=== PATIENT | male | born 1970 | race Caucasian/White ===

== ENCOUNTER 2018-06-29 14:04 | Inpatient (IN) | payer OTHER ==
[2018-06-29] MEDS ORDERED: KETOROLAC 30 MG/ML 1 ML VIAL IVP STA (15:10)
[2018-06-29 15:28] LABS: Basophils # (A) 0.1 k/uL (0-0.2); Basophils % (A) 0 %; Eosinophils # (A) 0.1 k/uL (0-0.7); Eosinophils % (A) 1 %; HCT 48.4 % (39.0-53.0); HGB 16.5 gm/dL (13.0-17.5); Lymphocytes # (A) 2.1 k/uL (1.0-4.8); Lymphocytes % (A) 10 %; MCH 30.1 pg (25.0-35.0); MCHC 34.1 g/dL (31.0-37.0); MCV 88.3 fL (80.0-100.0); Mean Platelet Volume 6.4; Monocytes # (A) 0.9 k/uL (0-1.0); Monocytes % (A) 5 %; Neutrophils # (A) 16.8 k/uL (1.3-7.7); Neutrophils % (A) 83 %; Platelet Count 298 k/uL (150-450); RBC 5.47 m/uL (4.30-5.90); WBC 20.2 k/uL (3.8-10.6)
--- NOTE | 2018-06-29 15:29 | ED ---
Skin/Abscess/FB HPI <Antoine Bolden - Last Filed: 06/29/18 16:06> - General Source: patient, RN notes reviewed, old records reviewed Mode of arrival: ambulatory Limitations: no limitations <Irais Marin - Last Filed: 06/29/18 17:00> - General Chief complaint: Skin/Abscess/Foreign Body Stated complaint: Right Arm Abscess Time Seen by Provider: 06/29/18 14:30 - History of Present Illness Initial comments: This Patient is a pleasant 47-year-old male who presents emergency Department chief complaint of right wrist abscess. Patient reports that on he believes he got bit by something while he was up [place]. Patient states that he returned home and over the past 2 days has noticed increased redness pain and swelling to the forearm. He states that he has a central area with purulent and clear drainage coming from the wrist. He denies any history of MRSA. Denies any history of IV drug use. (Irais Marin) - Related Data Home Medications Medication Instructions Recorded Confirmed No Known Home Medications 06/29/18 06/29/18 Allergies Allergy/AdvReac Type Severity Reaction Status Date / Time No Known Allergies Allergy Verified 06/29/18 14:36 Review of Systems ROS Other: All systems not noted in ROS Statement are negative. <Antoine Bolden - Last Filed: 06/29/18 16:06> ROS Other: All systems not noted in ROS Statement are negative. <Irais Marin - Last Filed: 06/29/18 17:00> ROS Statement: Those systems with pertinent positive or pertinent negative responses have been documented in the HPI. Past Medical History Past Medical History: No Reported History History of Any Multi-Drug Resistant Organisms: None Reported Past Surgical History: No Surgical Hx Reported Past Psychological History: No Psychological Hx Reported Smoking Status: Current every day smoker Past Alcohol Use History: None Reported Past Drug Use History: None Reported <Irais Marin - Last Filed: 06/29/18 17:00> General Exam <Antoine Bolden - Last Filed: 06/29/18 16:06> Limitations: no limitations General appearance: alert, in no apparent distress Head exam: Present: atraumatic, normocephalic, normal inspection Eye exam: Present: normal appearance, PERRL, EOMI. Absent: scleral icterus, conjunctival injection, periorbital swelling ENT exam: Present: normal exam, mucous membranes moist Neck exam: Present: normal inspection. Absent: tenderness, meningismus, lymphadenopathy Respiratory exam: Present: normal lung sounds bilaterally. Absent: respiratory distress, wheezes, rales, rhonchi, stridor Cardiovascular Exam: Present: regular rate, normal rhythm, normal heart sounds. Absent: systolic murmur, diastolic murmur, rubs, gallop, clicks GI/Abdominal exam: Present: soft, normal bowel sounds. Absent: distended, tenderness, guarding, rebound, rigid Extremities exam: Present: normal inspection, full ROM, normal capillary refill. Absent: tenderness, pedal edema, joint swelling, calf tenderness Right Upper Arm exam: Present: normal inspection, full ROM Elbow exam: Present: normal inspection, full ROM Forearm Wrist exam: Present: full ROM, tenderness, swelling, erythema (5cm abscess over distal ulna with surrounding cellulitis. 2 small puncture wounds over area of abscess, concern for animal/insect bite. ). Absent: normal inspection Hand Wrist exam: Present: normal inspection Back exam: Present: normal inspection Neurological exam: Present: alert, oriented X3, CN II-XII intact Psychiatric exam: Present: normal affect, normal mood Skin exam: Present: warm, dry, intact, normal color. Absent: rash <Irais Marin - Last Filed: 06/29/18 17:00> - General Exam Comments Initial Comments: Is a 47-year-old male. Alert and oriented. Patient appears in no significant distress. (Irais Marin) Vital Signs 06/29/18 06/29/18 14:15 16:47 Temperature 97.6 F 97.9 F Pulse Rate 84 91 Respiratory 20 17 Rate Blood Pressure 147/91 153/99 O2 Sat by Pulse 98 93 L Oximetry Medical Decision Making - Lab Data Result diagrams: 06/29/18 15:15 06/29/18 15:15 <Antoine Bolden - Last Filed: 06/29/18 16:06> - Lab Data Result diagrams: 06/29/18 15:15 06/29/18 15:15 - Radiology Data Radiology results: report reviewed <Irais Marin - Last Filed: 06/29/18 17:00> - Medical Decision Making Patient reexamined and reevaluated by myself, Dr. Bolden. Patient resting comfortably in bed. Patient has had fevers at home. Patient does have an area of inflammation right ulnar side of the wrist proximally 3 x 3 cm that could be early abscess. PA we'll attempt to drain this with needle. There is cellulitis extending towards the elbow. Patient has elevated white blood cell count. Patient updated on results and plan. Case discussed in detail with Dr. Ceballos, who will admit covering for hospital call. I did review and agree with the findings. This includes all diagnostic interpretations and treatment plan. Patient does not meet sepsis criteria at this time. (Antoine Bolden) Patient is a 47-year-old male presents to return today with right wrist inflammation. Patient has been early abscess. Patient was started on Zosyn and vancomycin. X-ray of the forearm was reviewed and shows no evidence of osteomyelitis. White blood cell count is elevated 20,000. Blood cultures were obtained. I was able to use a in 18-gauge needle to open the area of fluctuance. Approximately 2 mL of purulent fluid was removed. Culture was completed. Patient will be started on the antibiotics and admitted. Dr. Bolden discussed the case with Dr. Ceballos. (Irais Marin) - Lab Data Lab Results 06/29/18 06/29/18 Range/Units 15:15 15:15 WBC 20.2 H (3.8-10.6) k/uL RBC 5.47 (4.30-5.90) m/uL Hgb 16.5 (13.0-17.5) gm/dL Hct 48.4 (39.0-53.0) % MCV 88.3 (80.0-100.0) fL MCH 30.1 (25.0-35.0) pg MCHC 34.1 (31.0-37.0) g/dL RDW 13.0 (11.5-15.5) % Plt Count 298 (150-450) k/uL Neutrophils % 83 % Lymphocytes % 10 % Monocytes % 5 % Eosinophils % 1 % Basophils % 0 % Neutrophils # 16.8 H (1.3-7.7) k/uL Lymphocytes # 2.1 (1.0-4.8) k/uL Monocytes # 0.9 (0-1.0) k/uL Eosinophils # 0.1 (0-0.7) k/uL Basophils # 0.1 (0-0.2) k/uL Sodium 139 (137-145) mmol/L Potassium 4.6 (3.5-5.1) mmol/L Chloride 101 (98-107) mmol/L Carbon Dioxide 28 (22-30) mmol/L Anion Gap 10 mmol/L BUN 13 (9-20) mg/dL Creatinine 0.66 (0.66-1.25) mg/dL Est GFR (CKD-EPI)AfAm >90 (>60 ml/min/1.73 sqM) Est GFR (CKD-EPI)NonAf >90 (>60 ml/min/1.73 sqM) Glucose 104 H (74-99) mg/dL Calcium 9.8 (8.4-10.2) mg/dL Total Bilirubin 0.6 (0.2-1.3) mg/dL AST 16 L (17-59) U/L ALT 26 (21-72) U/L Alkaline Phosphatase 78 (38-126) U/L Total Protein 7.8 (6.3-8.2) g/dL Albumin 4.3 (3.5-5.0) g/dL - Radiology Data Normal right forearm x-ray. (Irais Marin) Disposition <Antoine Bolden - Last Filed: 06/29/18 16:06> Is patient prescribed a controlled substance at d/c from ED?: No Time of Disposition: 16:59 <Irais Marin - Last Filed: 06/29/18 17:00> Clinical Impression: Abscess of right forearm Disposition: HOME SELF-CARE Condition: Good Additional Instructions: \ Referrals: Elvis Bradford DO [Primary Care Provider] - 1-2 days
--- NOTE | 2018-06-29 15:29 | XR ---
EXAMINATION TYPE: XR forearm RT DATE OF EXAM: 06/29/2018 COMPARISON: NONE HISTORY: Pain and redness TECHNIQUE: 2 views FINDINGS: Radius and ulna appear intact. I see no fracture nor dislocation. Joint spaces are fairly n ormal. IMPRESSION: Negative right forearm exam.
[2018-06-29] MEDS ORDERED: TETANUS-DIPHTHERIA TOX (PF) 0.5 ML VIAL IM ONE (15:30)
[2018-06-29 15:38] LABS: ALT 26 U/L (21-72); AST 16 U/L (17-59); Albumin 4.3 g/dL (3.5-5.0); Alkaline Phosphatase 78 U/L (38-126); Anion Gap 10 mmol/L; Blood Urea Nitrogen 13 mg/dL (9-20); Calcium 9.8 mg/dL (8.4-10.2); Carbon Dioxide 28 mmol/L (22-30); Chloride 101 mmol/L (98-107); Glucose 104 mg/dL (74-99); Potassium 4.6 mmol/L (3.5-5.1); Sodium 139 mmol/L (137-145); Total Bilirubin 0.6 mg/dL (0.2-1.3); Total Protein 7.8 g/dL (6.3-8.2)
[2018-06-29] MEDS ORDERED: PIPERACILLIN-TAZOBACTAM 3.375 GM in SODIUM CHLORIDE 0.9% 100 ML IVPB STA (16:21)
[2018-06-29] MEDS ORDERED: VANCOMYCIN IV PER PHARMACY 1 EACH MISC MISCELLANE PRN (16:21)
[2018-06-29] MEDS ORDERED: SODIUM CHLORIDE 0.9% 1,000 ML IV ONE (16:23)
[2018-06-29] MEDS ORDERED: ONDANSETRON 4 MG/2 ML VIAL IVP PRN (17:00)
[2018-06-29] MEDS ORDERED: IBUPROFEN 400 MG TAB PO PRN (17:00)
[2018-06-29] MEDS ORDERED: VANCOMYCIN 1,500 MG in SODIUM CHLORIDE 0.9% 250 ML IVPB ONE (17:00)
[2018-06-29] MEDS ORDERED: ACETAMINOPHEN TAB 325 MG TAB PO PRN (17:00)
[2018-06-29] MEDS ORDERED: HYDROcodone/APAP 5-325MG 1 EACH TAB PO PRN (17:00)
[2018-06-29] MEDS ORDERED: oxyCODONE-APAP 5-325MG 1 EACH TAB PO PRN (17:00)
[2018-06-29] MEDS ORDERED: NALOXONE 0.4 MG/ML 1 ML VIAL IV PRN (17:00)
--- NOTE | 2018-06-29 17:03 | ED ---
Medical Decision Making - Lab Data Result diagrams: 06/29/18 15:15 06/29/18 15:15 Lab Results 06/29/18 06/29/18 Range/Units 15:15 15:15 WBC 20.2 H (3.8-10.6) k/uL RBC 5.47 (4.30-5.90) m/uL Hgb 16.5 (13.0-17.5) gm/dL Hct 48.4 (39.0-53.0) % MCV 88.3 (80.0-100.0) fL MCH 30.1 (25.0-35.0) pg MCHC 34.1 (31.0-37.0) g/dL RDW 13.0 (11.5-15.5) % Plt Count 298 (150-450) k/uL Neutrophils % 83 % Lymphocytes % 10 % Monocytes % 5 % Eosinophils % 1 % Basophils % 0 % Neutrophils # 16.8 H (1.3-7.7) k/uL Lymphocytes # 2.1 (1.0-4.8) k/uL Monocytes # 0.9 (0-1.0) k/uL Eosinophils # 0.1 (0-0.7) k/uL Basophils # 0.1 (0-0.2) k/uL Sodium 139 (137-145) mmol/L Potassium 4.6 (3.5-5.1) mmol/L Chloride 101 (98-107) mmol/L Carbon Dioxide 28 (22-30) mmol/L Anion Gap 10 mmol/L BUN 13 (9-20) mg/dL Creatinine 0.66 (0.66-1.25) mg/dL Est GFR (CKD-EPI)AfAm >90 (>60 ml/min/1.73 sqM) Est GFR (CKD-EPI)NonAf >90 (>60 ml/min/1.73 sqM) Glucose 104 H (74-99) mg/dL Calcium 9.8 (8.4-10.2) mg/dL Total Bilirubin 0.6 (0.2-1.3) mg/dL AST 16 L (17-59) U/L ALT 26 (21-72) U/L Alkaline Phosphatase 78 (38-126) U/L Total Protein 7.8 (6.3-8.2) g/dL Albumin 4.3 (3.5-5.0) g/dL Disposition Clinical Impression: Abscess of right forearm Disposition: ADMITTED IP TO THIS HOSP Condition: Good Additional Instructions: \ Referrals: Elvis Bradford DO [Primary Care Provider] - 1-2 days
[2018-06-29 18:33] VITALS: BMI 22.7
[2018-06-29] MEDS: SODIUM CHLORIDE 0.9% 1,000 ML IV SCH (18:42)
[2018-06-29] MEDS: VANCOMYCIN 1,500 MG in SODIUM CHLORIDE 0.9% 250 ML IVPB SCH (23:39)
[2018-06-29] MEDS: TEMAZEPAM 15 MG CAP PO PRN (23:39)
[2018-06-30] MEDS: HYDROmorphone 0.5 MG/0.5 ML SYRINGE IVP PRN ×6 (02:35→21:12)
[2018-06-30] MEDS: SODIUM CHLORIDE 0.9% 1,000 ML IV SCH ×2 (02:47→11:34)
[2018-06-30] MEDS: VANCOMYCIN 1,500 MG in SODIUM CHLORIDE 0.9% 250 ML IVPB SCH ×2 (07:39→16:59)
[2018-06-30] MEDS: HEPARIN SODIUM,PORCINE 5,000 UNIT/ML 1 ML VIAL SQ SCH ×2 (07:49→21:11)
[2018-06-30] MEDS: PANTOPRAZOLE 40 MG/10 ML VIAL IV SCH (07:49)
--- NOTE | 2018-06-30 09:15 | HP ---
HISTORY AND PHYSICAL DATE OF SERVICE: 06/29/2018 CHIEF COMPLAINT: Pain and swelling of the right arm. HISTORY OF PRESENT ILLNESS: This 47-year-old gentleman with a past medical history of no significant medical illness being followed by Dr. Elvis Bradford in the outpatient setting, is a lunch truck operator. Patient [place] and patient was in the house and patient noted some white spots in the right wrist and patient apparently did not do anything about it and went about this way, but subsequently patient had increased swelling and pain. Patient had features of fever, weakness, night sweats and multiple symptomatology. Patient came to [facility] and admitted for further evaluation. By this time the swelling has improved significantly about 4-5 cm, tender and also purulent pus could be expressed also by the ER physician. The insect bite is suspected by the patient but without any evidence. There is no history of fever, rigors. No headache, loss of consciousness. No history of previous MRSA. PAST MEDICAL: No history of medical illness. MEDICATIONS: Home medications are none. ALLERGIES: None. FAMILY HISTORY: No history of heart disease or history of hypertension in the family. SOCIAL HISTORY: History of smoking on a daily basis. REVIEW OF SYSTEMS: ENT: No diminished hearing or vision. CARDIOVASCULAR: No angina. RESPIRATORY: No cough or hemoptysis. GI: No nausea. : No dysuria. NERVOUS SYSTEM: No numbness or weakness. ALLERGY/IMMUNOLOGY: No asthma. MUSCULOSKELETAL: As mentioned earlier. HEMATOLOGY: No history of anemia. ENDOCRINE: No history of diabetes or hypothyroid. CONSTITUTIONAL: As mentioned earlier. DERMATOLOGY: As mentioned earlier. RHEUMATOLOGY: Negative. PSYCHIATRY: As mentioned earlier. PHYSICAL EXAM: Patient is alert, oriented x3. Pulse is 87, blood pressure 143/84, respiration 18, temperature 100.6, pulse ox 97% on room air. HEENT: Conjunctivae normal. Oral mucosa moist. Neck is no jugular venous distention. No carotid bruit. No lymph node enlargement. CARDIOVASCULAR: S1, S2. RESPIRATORY: Breath sounds diminished in the bases. No rhonchi, no crackles. ABDOMEN: Soft, nontender. No mass palpable. LEGS: No edema, no swelling. NERVOUS SYSTEM: Higher functions as mentioned. Moves all 4 limbs. No focal motor or sensory deficits. LYMPHATIC: No lymphadenopathy in the neck, axillae, groin. SKIN: No ulcer except the right arm. EXAMINATION OF THE RIGHT FOREARM: Significant swelling with minimal fluctuation, severe tender, erythema with ascending lymphangitis present on the volar aspect. LAB: WBC 20.2, hemoglobin 16.4. ASSESSMENT: 1. Acute left wrist abscess with possible early sepsis. 2. Increased WBC. 3. History of nicotine dependence. RECOMMENDATIONS AND DISCUSSION: This 47-year-old gentleman who presented with multiple complex medical issues, we will monitor the patient closely. Continue the current management. Will obtain Infectious Disease and Orthopedic evaluations. The patient could definitely need incision and drainage. We will follow the cultures. Empiric antibiotics with vancomycin and Zosyn has been initiated. Prognosis extremely guarded because of multiple complex medical issues. Further recommendations to follow. Copy of dictation forwarded to Dr. Elvis Bradford, who is the primary physician. MMSTEPHIEL / TIMURN: [id number] /
[2018-06-30] MEDS: ALPRAZolam 0.25 MG TAB PO PRN ×2 (09:38→19:52)
[2018-06-30] MEDS ORDERED: HYDROcodone/APAP 7.5-325MG 1 EACH TAB PO PRN (11:21)
[2018-06-30] MEDS ORDERED: SODIUM CHLORIDE 0.9% 1,000 ML IV ONE (14:05)
[2018-06-30] MEDS ORDERED: LACTATED RINGERS 1,000 ML IV ONE (14:06)
--- NOTE | 2018-06-30 14:42 | CONS ---
CONSULTATION CHIEF COMPLAINT: Right volar forearm swelling/drainage. HISTORY OF PRESENT ILLNESS: The patient is a 47-year-old, right-hand dominant regional flatbed truck driver who presents with right forearm/wrist pain and erythema along with recent fevers and chills for the past 3 days. Started the day after Rajendra. He thinks he may of sustained an insect bite. He has had progressive redness, warmth, and eventual drainage from this site. He notes fevers and chills in addition to feeling on well. He presented the emergency room yesterday. PAST MEDICAL HISTORY: Negative. PAST SURGICAL HISTORY: Negative. CURRENT MEDICATIONS: None. ALLERGIES: He denies drug allergies. FAMILY HISTORY: Noncontributory. SOCIAL HISTORY: Significant for 1 pack per day tobacco use. He denies any type of IV drug use. REVIEW OF SYSTEMS: Sixteen point review of systems is reviewed and is positive for recent fevers/chills. PHYSICAL EXAMINATION: On examination, the patient currently is afebrile with stable vital signs. He is alert, oriented x4. HEENT exam is nonfocal. Neck is supple. He is nontender about the right shoulder. No palpable lymphadenopathy is noted in the axilla. He is nontender about the right elbow. On examination of his right forearm, he does have a volar distal ulnar wound with some purulence. There is significant induration and swelling along with surrounding erythema. Light touch is distally intact. Capillary refill is less than 2 seconds throughout the digits. He has full digital range of motion. He has full pronation and supination of the right forearm. He does have some pain with flexion and ulnar deviation of the right wrist. He is nontender about the dorsal radiocarpal and dorsal ulnocarpal articulation. Previous x-rays of the right forearm showed no definite osseous abnormality or radiopaque foreign body. Laboratory studies show white blood cell count peripherally 20.2 with a significant left shift. IMPRESSION: Right volar distal ulnar forearm abscess. RECOMMENDATIONS: I talked to the patient about his options. At this point, recommend proceeding with incision and drainage with irrigation and debridement of this abscess. We will obtain deep cultures. We will follow with Infectious Disease and ask for their assistance in antibiotic treatment. Thank you for this consultation. MMODL / IJN: [id number] /
[2018-06-30] MEDS ORDERED: KETOROLAC 30 MG/ML 1 ML VIAL ONE (14:53)
[2018-06-30] MEDS ORDERED: MIDAZOLAM 2 MG/2 ML VIAL ONE (14:53)
[2018-06-30] MEDS ORDERED: LIDOCAINE 1% INJ 10MG/ML (20 ML MDV) ONE (14:53)
[2018-06-30] MEDS ORDERED: KETAMINE 10 MG/ML 20 ML VIAL ONE (14:53)
[2018-06-30] MEDS ORDERED: fentaNYL (PF) 50 MCG/ML 2 ML AMP ONE (14:53)
[2018-06-30] MEDS ORDERED: DEXAMETHASONE SOD PHOS (MDV) 100 MG/10 ML VIAL ONE (14:53)
[2018-06-30] MEDS ORDERED: PROPOFOL 10 MG/ML 20 ML VIAL IV ONE (14:53)
--- NOTE | 2018-06-30 15:30 | P.OP ---
Date of Procedure: 06/30/18 Preoperative Diagnosis: Right volar distal ulnar forearm abscess Postoperative Diagnosis: Same Procedure(s) Performed: Incision and drainage with irrigation and debridement right volar distal ulnar forearm abscess Anesthesia: BRIDGETA Surgeon: Tomi Bee Estimated Blood Loss (ml): 10 Pathology: other (Deep cultures) Condition: stable Disposition: PACU Indications for Procedure: The patient's a 47-year-old male who presents with a several day history of increasing swelling, warmth, and erythema along with drainage about a right distal forearm infection. Clinically he was noted of evidence of a significant abscess. A discussion of the risks and benefits of operative intervention was made with patient. He opted to proceed. Specific risks of the procedure to include persistence of infection, neurovascular injury, and possible need for subsequent procedures was discussed. Informed consent was obtained. Operative Findings: As below Description of Procedure: The patient was brought to the operating room, and after induction of general anesthesia the right upper extremity was prepped and draped in a normal fashion. The tourniquet was inflated to 250 mmHg. A 3-1/2 cm incision was then made along the distal ulnar aspect of the right forearm over the palpable abscess and site of drainage. The skin was incised sharply. Subcutaneous tissues were divided bluntly. Significant purulence was encountered. Deep cultures were obtained. All the purulence was expressed. This extended down to level the muscle fascia. This was copiously irrigated with normal saline. 2 L was utilized. The wound edges and necrotic tissue was debrided sharply with a scalpel. The skin was then loosely reapproximated with simple 3-0 nylon sutures. A sterile dressing was applied. The tourniquet was deflated less than 30 minutes total tourniquet time. He was then awoken from general anesthesia and transferred to recovery room in good condition. Blood loss was estimated at 10 mL. No complications were incurred. Sponge and needle counts were correct at the end of the case.
[2018-06-30] MEDS ORDERED: HYDROmorphone 1 MG/ML 1 ML SYRINGE IVP ONE ×4 (15:40→16:15)
[2018-06-30] MEDS: HYDROcodone/APAP 7.5-325MG 1 EACH TAB PO PRN ×2 (17:11→22:41)
[2018-06-30] MEDS ORDERED: ceFAZolin IN SWFI 2 GM/20 ML SYRINGE IVP SCH (17:15)
[2018-06-30] MEDS ORDERED: diphenhydrAMINE 50 MG/ML 1 ML VIAL IVP PRN (18:12)
[2018-06-30] MEDS: KETOROLAC 30 MG/ML 1 ML VIAL IVP PRN (19:52)
--- NOTE | 2018-06-30 21:15 | PN ---
PROGRESS NOTE DATE OF SERVICE: 06/30/2018 This 47-year-old gentleman admitted with significant abscess on the left wrist, also had possibly early sepsis present on admission. The patient underwent incision and drainage by Dr. Bee and debridement of the right distal ulna forearm abscess was done. Significant fullness is noted. Deep cultures were obtained. The patient also had skin lesions on the right lower chest area with some extension also. Patient being closely monitored. The patient on broad-spectrum IV antibiotics. The cultures are negative so far. PAST MEDICAL HISTORY: Reviewed. REVIEW OF SYSTEM: Cardio system: No angina or palpitations. RESPIRATORY: As mentioned earlier. GASTROINTESTINAL: As mentioned earlier. : No dysuria, retention. CURRENT MEDICATIONS ARE: Current medications are reviewed and include: 1. Tylenol p.r.n. 2. [place] 7.5 q.4h p.r.n. 3. Xanax. 4. Kefzol. 5. Heparin. 6. Dilaudid 0.5 q.4h p.r.n. 7. Motrin. 8. Narcan. 9. Zofran. 10.Protonix. 11.Restoril. 12.Vancomycin IV. PHYSICAL EXAMINATION: GENERAL: Alert and oriented times three. VITAL SIGNS: Pulse 70. Blood pressure 150/90, respiration 16, temperature 98.2, pulse ox 98% on 10 L. HEENT is conjunctivae normal. NECK: No jugular venous distention. CARDIOVASCULAR: S1, S2. RESPIRATORY: Breath sounds diminished in the bases. No rhonchi. No crackles. ABDOMEN: Soft, nontender. Legs: No edema. CENTRAL NERVOUS SYSTEM: No focal deficits. Examination of the right forearm, status post surgery. LABS: WBC 20.8. ASSESSMENT: 1. Acute left wrist abscess with possible early sepsis status post incision and drainage. 2. Possible cutaneous abscess in the right lower chest posteriorly. 3. Increased WBC. 4. History of nicotine dependence. 5. Severe pain. RECOMMENDATIONS AND DISCUSSION: Recommend to continue current medications, management and symptomatic treatment. Adjust pain medications. I would also recommend continue with the antibiotics. Follow the cultures. I would also recommend Toradol to the current regimen also. The prognosis guarded because of the because of multiple complex medical issues and further recommendations to follow. We will closely follow with Orthopedic surgery, Dr. Bee and cultures. Also discussed with the patient, understands and agrees. MMODL / IJN: [id number] /
[2018-06-30] MEDS: TEMAZEPAM 15 MG CAP PO PRN (21:20)
[2018-06-30] MEDS ORDERED: HYDROmorphone 1 MG/ML 1 ML SYRINGE IVP PRN (22:07)
[2018-06-30] MEDS ORDERED: VANCOMYCIN TROUGH DUE 1 EACH MISC MISCELLANE ONE (23:00)
[2018-07-01] MEDS: SODIUM CHLORIDE 0.9% 1,000 ML IV SCH ×3 (00:19→17:05)
[2018-07-01] MEDS: VANCOMYCIN 1,500 MG in SODIUM CHLORIDE 0.9% 250 ML IVPB SCH ×4 (00:19→23:31)
[2018-07-01] MEDS ORDERED: HYDROmorphone 1 MG/ML 1 ML SYRINGE IVP STA (04:28)
[2018-07-01] MEDS: HYDROcodone/APAP 7.5-325MG 1 EACH TAB PO PRN ×3 (07:02→19:45)
[2018-07-01] MEDS: HEPARIN SODIUM,PORCINE 5,000 UNIT/ML 1 ML VIAL SQ SCH ×2 (08:06→19:46)
[2018-07-01] MEDS: HYDROmorphone 0.5 MG/0.5 ML SYRINGE IVP PRN (08:07)
[2018-07-01] MEDS: PANTOPRAZOLE 40 MG/10 ML VIAL IV SCH (08:07)
[2018-07-01 08:24] LABS: Basophils % (A) 0 %; Eosinophils # (A) 0.2 k/uL (0-0.7); Eosinophils % (A) 1 %; HCT 40.7 % (39.0-53.0); HGB 13.8 gm/dL (13.0-17.5); Lymphocytes # (A) 2.5 k/uL (1.0-4.8); Lymphocytes % (A) 15 %; MCH 29.9 pg (25.0-35.0); MCV 87.9 fL (80.0-100.0); Mean Platelet Volume 6.7; Monocytes % (A) 6 %; Neutrophils # (A) 13.1 k/uL (1.3-7.7); Neutrophils % (A) 77 %; Platelet Count 271 k/uL (150-450); RBC 4.63 m/uL (4.30-5.90); RDW 12.9 % (11.5-15.5); WBC 17.1 k/uL (3.8-10.6)
[2018-07-01] MEDS: ALPRAZolam 0.25 MG TAB PO PRN (08:29)
[2018-07-01 08:35] LABS: Anion Gap 7 mmol/L; Blood Urea Nitrogen 7 mg/dL (9-20); Calcium 8.9 mg/dL (8.4-10.2); Carbon Dioxide 24 mmol/L (22-30); Chloride 111 mmol/L (98-107); Glucose 118 mg/dL (74-99); Potassium 3.8 mmol/L (3.5-5.1); Sodium 142 mmol/L (137-145)
[2018-07-01] MEDS: KETOROLAC 30 MG/ML 1 ML VIAL IVP PRN ×2 (10:37→22:40)
--- NOTE | 2018-07-01 11:49 | P.PN ---
Subjective Progress Note Date: 07/01/18 Principal diagnosis: s/p I&D right distal volar forearm abscess Patient evaluated today at bedside, resting comfortably. Denies any new onset fever of chills. Notes discomfort in incision area. Objective - Vital Signs Vital signs: Vital Signs Temp 97.5 F L 07/01/18 05:57 Pulse 77 07/01/18 05:57 Resp 18 07/01/18 05:57 BP 143/90 07/01/18 05:57 Pulse Ox 96 07/01/18 05:57 Intake & Output 06/30/18 07/01/18 07/01/18 18:59 06:59 18:59 Intake Total 300 Output Total 505 Balance -205 Intake: IV 300 Output: Urine 500 Estimated Blood Loss 5 Other: # Voids 2 # Bowel Movements 0 - Exam Right upper extremity: Stitches are in good position, bloody serosanginus drainage on bandage noted. No streaking erythema noted. He is able to wiggle all fingers and make a fist with minimal difficulty. Distal neurovascular exam intact - Labs CBC & Chem 7: 07/01/18 07:44 07/01/18 07:44 Labs: Abnormal Lab Results - Last 24 Hours (Table) 07/01/18 07/01/18 Range/Units 07:44 07:44 WBC 17.1 H (3.8-10.6) k/uL Neutrophils # 13.1 H (1.3-7.7) k/uL Chloride 111 H (98-107) mmol/L BUN 7 L (9-20) mg/dL Creatinine 0.61 L (0.66-1.25) mg/dL Glucose 118 H (74-99) mg/dL Microbiology - Last 24 Hours (Table) 06/30/18 15:24 Anaerobic Culture - Preliminary Arm - Right 06/30/18 15:24 Anaerobic Culture - Preliminary Arm - Right 06/30/18 15:24 Wound Culture - Preliminary Arm - Right 06/30/18 15:24 Wound Culture - Preliminary Arm - Right 06/29/18 16:40 Gram Stain - Preliminary Arm - Right Wound Culture - Preliminary Presumptive Staph aureus 06/29/18 15:15 Blood Culture - Preliminary Blood No Growth after 24 hours Assessment and Plan Plan: Assessment: 1. Post op day #1 s/p I&D right distal volar forearm abscess Plan: Initial post op bandage changed at bedside, daily dressing changes Ice affected region Pain control Await culture and sensitivity results Other medical specialty recommendation Further recommendations to follow Time with Patient: Less than 30
[2018-07-01] MEDS: HYDROmorphone 1 MG/ML 1 ML SYRINGE IVP PRN ×2 (12:10→18:23)
[2018-07-01] MEDS: NICOTINE 21MG/24HR PATCH TRANSDERM SCH (12:34)
[2018-07-01] MEDS: LORazepam 1 MG TAB PO PRN ×2 (16:23→23:28)
--- NOTE | 2018-07-01 17:42 | P.CONS ---
History of Present Illness - Reason for Consult Consult date: 07/01/18 - Chief Complaint Abscess right wrist - History of Present Illness 47-year-old male presents to the emergency center because of increasing pain and swelling to the right distal wrist. 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 Going between [place] and the [facility], often [place] and [place]. The [place] he started to develop pain and swelling to the right distal forearm at the wrist. A blister form that was filled with what looked like pus and despite attempts to drain it it worsen. He developed increasing swelling and pain in the area. He developed some skin numbness to his hand and because of this he sought care in the emergency center. There are large abscess was seen and the patient was evaluated by orthopedic surgery and taken to the operating room for incision and drainage. Surgical note is reviewed and discussed with the PA also relates there was no and evidence of any tendon involvement. Patient still having significant difficulty with pain. Primary service discussed pain control with the patient and appears there may be some heroin use at times. Is however not an injection drug user. He is a tobacco smoker but not a significant alcohol user. Review of Systems 47-year-old male in no distress of the thin build HEENT:Denies headache or acute visual change. Denies sinus or mouth discomforts. Denies neck stiffness or pain. Denies significant oral cavity pain. Denies difficulty on swallowing. Lungs: Denies significant shortness of breath, has some chronic cough but no sputum production or hemoptysis Cardiovascular: Denies chest pains or shortness of breath no syncope Gastrointestinal:Denies nausea, vomiting, diarrhea, constipation, hematemesis, melena, hematochezia. No no significant change of bowel habit noticed. Musculoskeletal: denies significant myalgias or arthralgias. No new joint swelling. Denies new back pain. Skin: Wound to the right wrist as per the HPI Neuro: Denies headache or visual change. Denies any new onset weakness or difficulty with ambulation. Denies falls or seizures. Psychiatric:Denies anxiety or depression. Endocrine: Denies significant fatigue, denies significant weight loss or weight gain. Past Medical History Past Medical History: No Reported History History of Any Multi-Drug Resistant Organisms: None Reported Past Surgical History: No Surgical Hx Reported Past Psychological History: No Psychological Hx Reported Additional Psychological History / Comment(s): Is not . Lives independently. [place] the road cross country truck driver. Positive tobacco use. Denies alcohol or marijuana use, apparently occasional heroin use occurs but relates it 's by snorting not injection. No international travel. The experience. no animals in his home Smoking Status: Current every day smoker Past Alcohol Use History: None Reported Past Drug Use History: None Reported - Past Family History Father Family Medical History: Hypertension Medications and Allergies Home Medications and Allergies Comment(s): Current Medications Acetaminophen (Tylenol Tab) 650 mg PO Q6HR PRN PRN Reason: Mild Pain or Fever > 100.5 Hydrocodone Bitart/Acetaminophen ([place] 7.5-325) 1 each PO Q4H PRN PRN Reason: MODERATE Pain Last Admin: 06/30/18 12:07 Dose: 1 each Hydrocodone Bitart/Acetaminophen ([place] 7.5-325) 2 each PO Q6H PRN PRN Reason: Pain Last Admin: 07/01/18 13:44 Dose: 2 each Diphenhydramine HCl (Benadryl) 25 mg IVP Q6HR PRN PRN Reason: Allergy Symptoms Last Admin: 06/30/18 18:32 Dose: 25 mg Heparin Sodium (Porcine) (Heparin) 5,000 unit SQ Q12HR [facility]EE Last Admin: 07/01/18 08:06 Dose: Not Given Hydromorphone HCl (Dilaudid) 0.5 mg IVP Q4HR PRN PRN Reason: SEVERE Pain WHEN PO Last Admin: 07/01/18 08:07 Dose: 0.5 mg Hydromorphone HCl (Dilaudid) 1 mg IVP ONCE PRN PRN Reason: Pain Last Admin: 07/01/18 00:19 Dose: 1 mg Hydromorphone HCl (Dilaudid) 1 mg IVP Q6HR PRN PRN Reason: Severe Pain Last Admin: 07/01/18 12:10 Dose: 1 mg Sodium Chloride (Saline 0.9%) 1,000 mls @ 100 mls/hr IV .Q10H AIMEE Last Admin: 07/01/18 17:05 Dose: 100 mls/hr Vancomycin HCl 1,500 mg/ (Sodium Chloride) 250 mls @ 125 mls/hr IVPB Q8H [facility] Last Admin: 07/01/18 16:23 Dose: 125 mls/hr Ibuprofen (Motrin) 400 mg PO Q6HR PRN PRN Reason: Mild Pain or Fever > 100.5 Last Admin: 06/29/18 22:44 Dose: 400 mg Ketorolac Tromethamine (Toradol) 15 mg IVP Q6HR PRN PRN Reason: Breakthrough Pain Stop: 07/04/18 17:07 Last Admin: 07/01/18 10:37 Dose: 15 mg Lorazepam (Ativan) 1 mg PO Q8HR PRN PRN Reason: Anxiety Last Admin: 07/01/18 16:23 Dose: 1 mg Naloxone HCl (Narcan) 0.2 mg IV Q2M PRN PRN Reason: Opioid Reversal Nicotine (Habitrol 21mg/24hr Patch) 1 patch TRANSDERM DAILY [facility] Last Admin: 07/01/18 12:34 Dose: 1 patch Ondansetron HCl (Zofran) 4 mg IVP Q8HR PRN PRN Reason: Nausea And Vomiting Pantoprazole Sodium (Protonix) 40 mg PO AC-BRKFST [facility] Temazepam (Restoril) 15 mg PO HS PRN PRN Reason: Insomnia Last Admin: 06/30/18 21:20 Dose: 15 mg Home Medications Medication Instructions Recorded Confirmed Type No Known Home Medications 06/29/18 06/29/18 History Allergies Allergy/AdvReac Type Severity Reaction Status Date / Time No Known Allergies Allergy Verified 06/29/18 14:36 Physical Exam Vitals: Vital Signs Temp Pulse Pulse Resp BP Pulse Ox 07/01/18 14:44 98.5 F 76 20 146/68 96 07/01/18 05:57 97.5 F L 77 18 143/90 96 06/30/18 23:00 97.7 F 88 18 145/84 97 Intake and Output 07/01/18 07/01/18 07/01/18 06:59 14:59 22:59 Other: # Voids 2 3 # Bowel Movements 0 47-year-old male of thin build who is currently comfortable with having difficulties with sleep and has anxiety HEENT: Anicteric conjunctiva are pink and moist nasal mucosa grossly intact without significant lesions, there is no thrush. Dentition is poor Neck: The neck is supple without significant lymphadenopathy or thyromegaly. Lungs: Symmetrical air entry is noted, few expiratory wheezes are heard but no bronchial sounds no dullness or egophony Heart: Regular rate and rhythm with an audible S1-S2, no S3 no S4. There is no significant murmur click or rub, PMI was nondisplaced. Abdomen: Positive bowel sounds soft and nontender without palpable masses or organomegaly. There was no guarding or rebound. Extremities: Left arm is intact IV is intact. Lower extremities without edema. Right wrist reveals that the recent surgical intervention. Dressing is removed. The surgical incision and drainage site is noted. There is still surrounding induration warmth erythema in distinct tenderness. He however has range of motion of his hand and appears to have intact sensation over all 5 fingers. Neuro: Awake alert oriented to person place and time. There are no acute new gross focal sensory motor deficits. Results CBC & Chem 7: 07/01/18 07:44 07/01/18 07:44 Labs: Abnormal Lab Results - Last 24 Hours (Table) 07/01/18 07/01/18 Range/Units 07:44 07:44 WBC 17.1 H (3.8-10.6) k/uL Neutrophils # 13.1 H (1.3-7.7) k/uL Chloride 111 H (98-107) mmol/L BUN 7 L (9-20) mg/dL Creatinine 0.61 L (0.66-1.25) mg/dL Glucose 118 H (74-99) mg/dL Microbiology - Last 24 Hours (Table) 06/29/18 15:15 Blood Culture - Preliminary Blood No Growth after 48 hours 06/30/18 15:24 Gram Stain - Preliminary Arm - Right Wound Culture - Preliminary 06/30/18 15:24 Gram Stain - Preliminary Arm - Right Wound Culture - Preliminary 06/30/18 15:24 Anaerobic Culture - Preliminary Arm - Right 06/30/18 15:24 Anaerobic Culture - Preliminary Arm - Right 06/29/18 16:40 Gram Stain - Preliminary Arm - Right Wound Culture - Preliminary Presumptive Staph aureus Laboratory Results WBC 17.1 k/uL (3.8-10.6) H 07/01/18 07:44 RBC 4.63 m/uL (4.30-5.90) 07/01/18 07:44 Hgb 13.8 gm/dL (13.0-17.5) 07/01/18 07:44 Hct 40.7 % (39.0-53.0) 07/01/18 07:44 MCV 87.9 fL (80.0-100.0) 07/01/18 07:44 MCH 29.9 pg (25.0-35.0) 07/01/18 07:44 MCHC 34.0 g/dL (31.0-37.0) 07/01/18 07:44 RDW 12.9 % (11.5-15.5) 07/01/18 07:44 Plt Count 271 k/uL (150-450) 07/01/18 07:44 Neutrophils % 77 % 07/01/18 07:44 Lymphocytes % 15 % 07/01/18 07:44 Monocytes % 6 % 07/01/18 07:44 Eosinophils % 1 % 07/01/18 07:44 Basophils % 0 % 07/01/18 07:44 Neutrophils # 13.1 k/uL (1.3-7.7) H 07/01/18 07:44 Lymphocytes # 2.5 k/uL (1.0-4.8) 07/01/18 07:44 Monocytes # 1.0 k/uL (0-1.0) 07/01/18 07:44 Eosinophils # 0.2 k/uL (0-0.7) 07/01/18 07:44 Basophils # 0.0 k/uL (0-0.2) 07/01/18 07:44 Sodium 142 mmol/L (137-145) 07/01/18 07:44 Potassium 3.8 mmol/L (3.5-5.1) 07/01/18 07:44 Chloride 111 mmol/L (98-107) H 07/01/18 07:44 Carbon Dioxide 24 mmol/L (22-30) 07/01/18 07:44 Anion Gap 7 mmol/L 07/01/18 07:44 BUN 7 mg/dL (9-20) L 07/01/18 07:44 Creatinine 0.61 mg/dL (0.66-1.25) L 07/01/18 07:44 Est GFR (CKD-EPI)AfAm >90 (>60 ml/min/1.73 sqM) 07/01/18 07:44 Est GFR (CKD-EPI)NonAf >90 (>60 ml/min/1.73 sqM) 07/01/18 07:44 Glucose 118 mg/dL (74-99) H 07/01/18 07:44 Plasma Lactic Acid Mario Alberto 1.6 mmol/L (0.7-2.0) 06/29/18 15:15 Calcium 8.9 mg/dL (8.4-10.2) 07/01/18 07:44 Total Bilirubin 0.6 mg/dL (0.2-1.3) 06/29/18 15:15 AST 16 U/L (17-59) L 06/29/18 15:15 ALT 26 U/L (21-72) 06/29/18 15:15 Alkaline Phosphatase 78 U/L (38-126) 06/29/18 15:15 Total Protein 7.8 g/dL (6.3-8.2) 06/29/18 15:15 Albumin 4.3 g/dL (3.5-5.0) 06/29/18 15:15 Vancomycin Trough 18.3 ug/mL 06/30/18 22:45 Microbiology 06/29/18 15:15 Blood Blood Culture - Preliminary No Growth after 48 hours 06/30/18 15:24 Arm - Right Gram Stain - Preliminary 06/30/18 15:24 Arm - Right Wound Culture - Preliminary 06/30/18 15:24 Arm - Right Gram Stain - Preliminary 06/30/18 15:24 Arm - Right Wound Culture - Preliminary 06/30/18 15:24 Arm - Right Anaerobic Culture - Preliminary 06/30/18 15:24 Arm - Right Anaerobic Culture - Preliminary 06/29/18 16:40 Arm - Right Gram Stain - Preliminary 06/29/18 16:40 Arm - Right Wound Culture - Preliminary Presumptive Staph aureus Assessment and Plan (1) Abscess of right forearm Narrative/Plan: 47-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 He relates that he does not inject. He however was hunting and likely had an indistinct trauma resulting in the staphylococcal infection and abscess to the right wrist. Upon inquiring if this was a bug bite , we discussed no that it is usually a staphylococcal infection that most the time persons are concerned it's a bug bite but it is an infection. Local wound care is being utilized. Antibiotic therapy with vancomycin was started, at the time of the consult Ancef was added but the patient developed hives. He doesn' t have a known history of antibiotic ALLERGIES. For now we'll continue with vancomycin therapy. Surgery did not find involvement to tendons or deep structures and constantly once infection is improving and cultures are available will likely be discharged home on oral antimicrobial therapy. Protein intake is encouraged Multivitamin is added. Current Visit: Yes Status: Acute Code(s): L02.413 - CUTANEOUS ABSCESS OF RIGHT UPPER LIMB SNOMED Code(s): 43072889 (2) Smoker Current Visit: Yes Status: Acute Code(s): F17.200 - NICOTINE DEPENDENCE, UNSPECIFIED, UNCOMPLICATED SNOMED Code(s): 05587350
--- NOTE | 2018-07-01 18:30 | PN ---
PROGRESS NOTE DATE OF SERVICE: 07/01/2018 This 47-year-old gentleman who was admitted with acute right wrist abscess, also had surgery. The patient is complaining of severe pain at this time. The cultures are pending at this time. The patient is being closely monitored. Patient also has history of heroin abuse, apparently was snorting according to him. No chest pain. No palpitations. No fever. EXAM: Alert and oriented x3. Pulse 76, blood pressure 140/60, respirations 20, temperature 98.4, pulse ox 98% on room air. HEENT: Conjunctivae normal. Oral mucosa moist. NECK: No jugular venous distention. No lymph node enlargement. CARDIOVASCULAR: S1, S2. RESPIRATORY: Diminished breath sounds at the bases. No rhonchi, no crackles. ABDOMEN: Soft, nontender. LEGS: No swelling. NERVOUS SYSTEM: No focal deficits. RIGHT ARM: Status post incision and drainage. LAB STUDIES: WBC 17, hemoglobin 13.2, sodium 140, potassium 3.8. ASSESSMENT: 1. Right distal forearm abscess with early sepsis status post incision and drainage. 2. Cutaneous abscess in the right lower chest posteriorly. 3. Increased WBC. 4. History of nicotine dependence. 5. History of heroin abuse previously. 6. Severe pain. RECOMMENDATIONS: Continue current management, continue to monitor, continue symptomatic treatment. Cultures are showing Staph aureus. Final ID is pending. Continue the antibiotics and pain medications. Prognosis guarded because of multiple complex medical issues. Closely follow with Orthopedic surgery. Further recommendations to follow. MMODL / IJN: [id number] /
[2018-07-01] MEDS: MULTIVITAMINS, THERA 1 EACH TAB PO SCH (18:35)
[2018-07-01] MEDS: TEMAZEPAM 15 MG CAP PO PRN (19:54)
[2018-07-02] MEDS: HYDROmorphone 1 MG/ML 1 ML SYRINGE IVP PRN ×4 (00:33→23:02)
[2018-07-02] MEDS: HYDROcodone/APAP 7.5-325MG 1 EACH TAB PO PRN ×4 (02:04→20:12)
[2018-07-02] MEDS: SODIUM CHLORIDE 0.9% 1,000 ML IV SCH ×3 (04:58→20:13)
[2018-07-02] MEDS: VANCOMYCIN 1,500 MG in SODIUM CHLORIDE 0.9% 250 ML IVPB SCH ×2 (07:41→15:59)
[2018-07-02] MEDS: LORazepam 1 MG TAB PO PRN ×2 (07:42→17:04)
[2018-07-02] MEDS: HEPARIN SODIUM,PORCINE 5,000 UNIT/ML 1 ML VIAL SQ SCH ×2 (07:42→20:11)
[2018-07-02] MEDS: MULTIVITAMINS, THERA 1 EACH TAB PO SCH (07:42)
[2018-07-02] MEDS: NICOTINE 21MG/24HR PATCH TRANSDERM SCH (07:42)
[2018-07-02] MEDS: PANTOPRAZOLE 40 MG TABLET PO SCH (07:42)
[2018-07-02 12:33] LABS: Basophils # (A) 0.1 k/uL (0-0.2); Basophils % (A) 0 %; Eosinophils # (A) 0.1 k/uL (0-0.7); Eosinophils % (A) 1 %; HCT 44.4 % (39.0-53.0); HGB 14.9 gm/dL (13.0-17.5); Lymphocytes # (A) 2.3 k/uL (1.0-4.8); Lymphocytes % (A) 17 %; MCH 29.6 pg (25.0-35.0); MCHC 33.6 g/dL (31.0-37.0); MCV 88.3 fL (80.0-100.0); Mean Platelet Volume 6.5; Monocytes # (A) 0.6 k/uL (0-1.0); Monocytes % (A) 5 %; Neutrophils # (A) 10.5 k/uL (1.3-7.7); Neutrophils % (A) 76 %; Platelet Count 331 k/uL (150-450); RBC 5.03 m/uL (4.30-5.90); RDW 13.1 % (11.5-15.5); WBC 13.8 k/uL (3.8-10.6)
[2018-07-02 12:42] LABS: Anion Gap 10 mmol/L; Blood Urea Nitrogen 4 mg/dL (9-20); Calcium 9.6 mg/dL (8.4-10.2); Carbon Dioxide 22 mmol/L (22-30); Chloride 112 mmol/L (98-107); Glucose 113 mg/dL (74-99); Potassium 3.9 mmol/L (3.5-5.1); Sodium 144 mmol/L (137-145)
--- NOTE | 2018-07-02 13:32 | P.PN ---
Subjective Progress Note Date: 07/02/18 Principal diagnosis: s/p I&D right distal volar forearm abscess Patient evaluated today at bedside, resting comfortably. Denies any new onset fever of chills. Notes discomfort in incision area. Objective - Vital Signs Vital signs: Vital Signs Temp 98.0 F 07/02/18 07:00 Pulse 55 L 07/02/18 07:00 Resp 18 07/02/18 07:00 BP 147/90 07/02/18 07:00 Pulse Ox 95 07/02/18 07:00 Intake & Output 07/01/18 07/02/18 07/02/18 18:59 06:59 18:59 Intake Total 240 Balance 240 Weight 74 kg Intake: Oral 240 Other: # Voids 3 2 # Bowel Movements 1 - Exam Right upper extremity: Stitches are in good position. Erythema and swelling is improved significantly since yesterday. He is able to wiggle all fingers and make a fist with minimal difficulty. Distal neurovascular exam intact - Labs CBC & Chem 7: 07/02/18 12:03 07/02/18 12:03 Labs: Abnormal Lab Results - Last 24 Hours (Table) 07/02/18 07/02/18 Range/Units 12:03 12:03 WBC 13.8 H (3.8-10.6) k/uL Neutrophils # 10.5 H (1.3-7.7) k/uL Chloride 112 H (98-107) mmol/L BUN 4 L (9-20) mg/dL Glucose 113 H (74-99) mg/dL Microbiology - Last 24 Hours (Table) 06/30/18 15:24 Gram Stain - Preliminary Arm - Right Wound Culture - Preliminary Presumptive Staph aureus 06/30/18 15:24 Gram Stain - Preliminary Arm - Right Wound Culture - Preliminary Presumptive Staph aureus 06/29/18 16:40 Gram Stain - Final Arm - Right Wound Culture - Final Staphylococcus aureus 06/29/18 15:15 Blood Culture - Preliminary Blood No Growth after 48 hours 06/30/18 15:24 Anaerobic Culture - Preliminary Arm - Right 06/30/18 15:24 Anaerobic Culture - Preliminary Arm - Right Assessment and Plan Plan: Assessment: 1. Post op day #2 s/p I&D right distal volar forearm abscess Plan: Continue daily dressing changes Ice affected region Pain control Preoperative culture and sensitivities revealed MSSA, awaiting operative culture and sensitivities Other medical specialty recommendation Hopeful discharged tomorrow Time with Patient: Less than 30
[2018-07-02] MEDS: HYDROmorphone 0.5 MG/0.5 ML SYRINGE IVP PRN (18:29)
[2018-07-02] MEDS: TEMAZEPAM 15 MG CAP PO PRN (20:11)
[2018-07-02 23:14] VITALS: RESP 16
[2018-07-03] MEDS: VANCOMYCIN 1,500 MG in SODIUM CHLORIDE 0.9% 250 ML IVPB SCH ×2 (00:12→09:09)
[2018-07-03] MEDS: LORazepam 1 MG TAB PO PRN ×2 (00:33→10:26)
[2018-07-03] MEDS: HYDROcodone/APAP 7.5-325MG 1 EACH TAB PO PRN ×2 (05:25→11:34)
[2018-07-03] MEDS: NICOTINE 21MG/24HR PATCH TRANSDERM SCH ×2 (06:31→07:47)
[2018-07-03] MEDS ORDERED: VANCOMYCIN TROUGH DUE 1 EACH MISC MISCELLANE ONE (07:00)
[2018-07-03 07:17] VITALS: BP 158/81; PULSE 52; TEMP 97.8
--- NOTE | 2018-07-03 07:45 | PN ---
PROGRESS NOTE DATE OF SERVICE: 07/02/2018 This is a 47-year-old gentleman who was admitted with right distal forearm abscess, incision and drainage. The patient is on broad-spectrum IV antibiotics and MSSA is grown from the culture. Infectious Disease is following the patient closely. No chest pain. No palpitations. No fever. PHYSICAL EXAM: Alert and oriented x3. Pulse 55, blood pressure 147/90, respiration 18, temperature 98 degrees, pulse ox 94% on room air. HEENT: Conjunctivae normal. NECK: No jugular venous distension. CARDIOVASCULAR: S1, S2, muffled. RESPIRATORY Breath sounds diminished at the bases, no rhonchi, no crackles. ABDOMEN: Soft, nontender. No mass palpable. LEGS: No edema. No swelling. Examination of the right forearm significant swelling and tenderness, erythema present. NERVOUS SYSTEM: No focal deficits. LABS: WBC is 13.8, sodium 144, potassium 3.9. ASSESSMENT: 1. Right distal forearm abscess with early sepsis, status post incision and drainage with methicillin-susceptible Staphylococcus aureus. 2. Cutaneous abscess in the right lower chest posteriorly. 3. Increased WBC. 4. History of nicotine dependence. 5. History of heroin abuse, previously. 6. History of severe pain. RECOMMENDATION: Recommend to continue current management and symptomatic treatment, otherwise continue with the broad-spectrum IV antibiotics. Continue with the rest of the medications. Closely follow with Orthopedic Surgery. Guarded prognosis. Further recommendations to follow. MMSTEPHIEL / BRIAN: [id number] /
[2018-07-03] MEDS: PANTOPRAZOLE 40 MG TABLET PO SCH (07:47)
[2018-07-03] MEDS: HEPARIN SODIUM,PORCINE 5,000 UNIT/ML 1 ML VIAL SQ SCH (07:47)
[2018-07-03] MEDS: MULTIVITAMINS, THERA 1 EACH TAB PO SCH (07:47)
[2018-07-03] MEDS: HYDROmorphone 1 MG/ML 1 ML SYRINGE IVP PRN ×2 (07:52→14:35)
[2018-07-03] MEDS: SODIUM CHLORIDE 0.9% 1,000 ML IV SCH (09:10)
[2018-07-03 09:28] LABS: Basophils # (A) 0.1 k/uL (0-0.2); Basophils % (A) 0 %; Eosinophils # (A) 0.3 k/uL (0-0.7); Eosinophils % (A) 2 %; HCT 42.9 % (39.0-53.0); HGB 14.3 gm/dL (13.0-17.5); Lymphocytes # (A) 2.4 k/uL (1.0-4.8); Lymphocytes % (A) 18 %; MCH 29.3 pg (25.0-35.0); MCHC 33.3 g/dL (31.0-37.0); MCV 87.9 fL (80.0-100.0); Monocytes # (A) 0.6 k/uL (0-1.0); Monocytes % (A) 5 %; Neutrophils # (A) 10.3 k/uL (1.3-7.7); Neutrophils % (A) 74 %; Platelet Count 332 k/uL (150-450); RBC 4.88 m/uL (4.30-5.90); WBC 13.8 k/uL (3.8-10.6)
[2018-07-03 09:34] LABS: Anion Gap 9 mmol/L; Blood Urea Nitrogen 6 mg/dL (9-20); Calcium 9.3 mg/dL (8.4-10.2); Carbon Dioxide 23 mmol/L (22-30); Chloride 110 mmol/L (98-107); Glucose 156 mg/dL (74-99); Potassium 3.5 mmol/L (3.5-5.1); Sodium 142 mmol/L (137-145)
--- NOTE | 2018-07-03 13:27 | P.PN ---
Subjective Progress Note Date: 07/03/18 Principal diagnosis: s/p I&D right distal volar forearm abscess Patient evaluated today at bedside, resting comfortably. Denies any new onset fever of chills. Notes discomfort in incision area. Objective - Vital Signs Vital signs: Vital Signs Temp 97.8 F 07/03/18 07:00 Pulse 52 L 07/03/18 07:00 Resp 16 07/03/18 07:00 BP 158/81 07/03/18 07:00 Pulse Ox 99 07/03/18 07:00 Intake & Output 07/02/18 07/03/18 07/03/18 18:59 06:59 18:59 Intake Total 240 690 Balance 240 690 Weight 74 kg Intake: Intake, IV Titration 250 Amount Vancomycin 1,500 mg In 250 Sodium Chloride 0.9% 250 ml @ 125 mls/hr IVPB Q8H [facility] Rx#:[id number] Oral 240 440 Other: # Voids 2 1 - Exam Right upper extremity: Stitches are in good position. Erythema and swelling is improved significantly since yesterday. He is able to wiggle all fingers and make a fist with minimal difficulty. Distal neurovascular exam intact - Labs CBC & Chem 7: 07/03/18 09:10 07/03/18 09:10 Labs: Abnormal Lab Results - Last 24 Hours (Table) 07/03/18 07/03/18 Range/Units 09:10 09:10 WBC 13.8 H (3.8-10.6) k/uL Neutrophils # 10.3 H (1.3-7.7) k/uL Chloride 110 H (98-107) mmol/L BUN 6 L (9-20) mg/dL Glucose 156 H (74-99) mg/dL Microbiology - Last 24 Hours (Table) 06/29/18 15:15 Blood Culture - Preliminary Blood No Growth after 72 hours 06/30/18 15:24 Gram Stain - Preliminary Arm - Right Wound Culture - Preliminary Presumptive Staph aureus 06/30/18 15:24 Gram Stain - Preliminary Arm - Right Wound Culture - Preliminary Presumptive Staph aureus Assessment and Plan Plan: Assessment: 1. Post op day #3 s/p I&D right distal volar forearm abscess Plan: Continue daily dressing changes Ice affected region Pain control Infectious disease recommendations for abx Other medical specialty recommendation Plan for dc home today Time with Patient: Less than 30
[2018-07-03] MEDS ORDERED: diphenhydrAMINE 25 MG CAP PO PRN (14:57)
--- NOTE | 2018-07-03 23:44 | DS ---
DISCHARGE SUMMARY DATE OF SERVICE: 07/03/2018. FINAL DIAGNOSES: 1. Right distal forearm abscess with early sepsis status post incision and drainage with Methicillin-resistant Staphylococcus aureus. 2. Cutaneous abscess of the right lower chest posteriorly. 3. Increased WBC. 4. History of nicotine dependence. 5. History of heroin abuse previously. 6. History of severe pain. DISCHARGE DISPOSITION: The patient is being discharged in stable condition with guarded prognosis. HISTORY: This 47-year-old gentleman with a past medical history of right distal forearm abscess features due to MRSA. The patient was treated with antibiotics. The patient improved significantly. PHYSICAL EXAMINATION: VITAL SIGNS: Stable. CARDIOVASCULAR: S1 and S2 muffled. LUNGS: Breath sounds diminished. FRAME POLISHER: No focal deficits. DISCHARGE INSTRUCTIONS: 1. The patient will be discharged in stable condition with guarded prognosis. 2. Diet is cardiac. 3. Activity limited. FOLLOWUP: 1. Follow up with Dr. Bee as recommended. 2. Follow up with Dr. Elvis Bradford in 2 to 3 days, primary physician. 3. Follow up Dr. Vigil as recommended. MEDICATIONS: 1. [place] 7.5 every 6 hours p.r.n. 2. Multivitamins. 3. Habitrol 21 daily. 4. Protonix 40 mg daily. 5. Bactrim DS 1 p.o. b.i.d. for 15 days. Once again, the patient is being discharged in stable condition with guarded prognosis. MMSTEPHIEL / BRIAN: [id number] /
--- NOTE | 2018-07-05 07:53 | CDI ---
Excisional debridement with cutting of necrotic tissue with a scalpel. Documentation Clarification Form Date: From: Emelia Qiu Phone: If you have a question regarding this query, please contact Meagan Sherman at [phone] between 8am and 5pm. Admit Date: 06/30/2018 10:46:00 AM Patient Name: Fuad Bermeo Visit Number: [id number] Discharge Date: 07/03/2018 2:59:00 PM ATTENTION: The Clinical Documentation Specialists (CDI) and [facility] Coding Staff appreciate your assistance in clarifying documentation. Please respond to the clarification below the line at the bottom and electronically sign. The CDI & [facility] Coding staff will review the response and follow-up if needed. Please note: Queries are made part of the Legal Health Record. If you have any questions, please contact the author of this message via ITS. Dr. Tomi Bee Per your operative note, a debridement was performed on the right forearm abscess. History/Risk Factors: Patient was admitted with an abscess to the right forearm. Clinical Indicators: Purulence and necrotic tissue. Treatment: Incision and drainage and wound edges and necrotic tissue was debrided sharply with a scalpel. IV antibiotics. In order to capture the severity of condition and code the appropriate procedure ; could you please document the following: Excisional debridement (the removal of necrotic, devitalized tissue or slough by means of cutting away of tissue) Non-excisional debridement (the removal of necrotic, devitalized tissue or slough by means of flushing, brushing, or washing. (Irrigation) Other; please specify Unable to determine MTDD
== END 2018-07-03 14:59 | disposition home or self-care (01) | DRG 854 ==
LOC: EC 14:04 → 4MS4W 16:06 → OBSVTOIN 06-30 10:46
PROVIDERS: ADMIT Hospitalist; ATTEND Hospitalist
PROC: 0JBD0ZZ Excision of Right Upper Arm Subcutaneous Tissue and Fascia, Open Approach (ICD-10-PCS; principal; 2018-06-30 13:19)
DX: A41.01 Sepsis due to Methicillin susceptible Staphylococcus aureus (principal); L02.413 Cutaneous abscess of right upper limb; L02.213 Cutaneous abscess of chest wall; L03.113 Cellulitis of right upper limb; B95.61 Methicillin susceptible Staphylococcus aureus infection as the cause of diseases classified elsewhere; F17.210 Nicotine dependence, cigarettes, uncomplicated; K21.9 Gastro-esophageal reflux disease without esophagitis; Z82.49 Family history of ischemic heart disease and other diseases of the circulatory system
CPT/HCPCS: 10060; 36415; 80048; 80053; 80202; 83605; 85025; 87040; 87070; 87075; 87077; 87186; 87205; 90471; 90714; 96365; 96375; 99284

== ENCOUNTER 2022-10-05 19:02 | Observation (INO) | payer OTHER ==
[2022-10-05] MEDS ORDERED: NALOXONE 0.4 MG/ML 1 ML VIAL IVP STA (19:26)
--- NOTE | 2022-10-05 19:59 | ED ---
Altered Mental Status HPI - General Chief Complaint: Altered Mental Status Stated Complaint: Weakness Time Seen by Provider: 10/05/22 19:21 Source: patient, EMS Mode of arrival: EMS Limitations: altered mental status - History of Present Illness Initial Comments: This patient is 51-year-old man brought from work after coworkers had some an ambulance because he was not responding appropriately. The patient appeared to be falling asleep. I he had reported history of using [place] for pain. On his initial arrival, the patient was not able to provide much history to me because he was very somnolent. MD Complaint: altered mental status Onset/Timin -: hour(s) Associated Symptoms: cough (Chronic) - Related Data Previous Rx's Medication Instructions Recorded Amoxic-Pot Clav 875-125Mg 1 tab PO BID 1 Days #10 tab 10/07/22 [Augmentin 875-125] amLODIPine [Norvasc] 5 mg PO DAILY #30 tab 10/07/22 Allergies Allergy/AdvReac Type Severity Reaction Status Date / Time cefazolin Allergy Rash/Hives Verified 10/05/22 20:44 Review of Systems ROS Statement: Those systems with pertinent positive or pertinent negative responses have been documented in the HPI. ROS Other: All systems not noted in ROS Statement are negative. Constitutional: Denies: fever Respiratory: Denies: cough Cardiovascular: Denies: chest pain Gastrointestinal: Denies: abdominal pain Neurological: Denies: headache Past Medical History Past Medical History: No Reported History History of Any Multi-Drug Resistant Organisms: None Reported Past Surgical History: No Surgical Hx Reported Past Psychological History: No Psychological Hx Reported Past Alcohol Use History: None Reported Past Drug Use History: None Reported - Past Family History Father Family Medical History: Hypertension General Exam Limitations: altered mental status General appearance: obtunded Head exam: Present: atraumatic, normocephalic Eye exam: Present: normal appearance. Absent: scleral icterus, conjunctival injection Pupils: Present: miosis ENT exam: Present: mucous membranes dry Neck exam: Present: normal inspection Respiratory exam: Present: rhonchi. Absent: respiratory distress, wheezes, rales, stridor Cardiovascular Exam: Present: regular rate, normal rhythm, normal heart sounds. Absent: systolic murmur, diastolic murmur, rubs, gallop GI/Abdominal exam: Present: soft. Absent: distended, tenderness, guarding, rebound, rigid, mass Extremities exam: Present: normal inspection, normal capillary refill. Absent: pedal edema, calf tenderness Back exam: Present: normal inspection Neurological exam: Present: altered, reflexes normal Skin exam: Present: warm, dry, intact, normal color. Absent: rash Course Vital Signs 10/05/22 10/05/22 10/05/22 19:18 20:50 23:46 Temperature Pulse Rate 60 50 L Pulse Rate [ Pulse Oximetery ] Respiratory 18 18 18 Rate Blood Pressure 180/110 180/105 Blood Pressure [Right Arm] O2 Sat by Pulse 94 L Oximetry 10/06/22 10/06/22 10/06/22 08:56 12:35 14:34 Temperature Pulse Rate 52 L 41 L 51 L Pulse Rate [ Pulse Oximetery ] Respiratory 18 18 18 Rate Blood Pressure 127/79 164/91 Blood Pressure [Right Arm] O2 Sat by Pulse 96 96 96 Oximetry 10/06/22 10/06/22 10/06/22 15:15 15:20 15:31 Temperature Pulse Rate Pulse Rate [ 55 L 49 L 52 L Pulse Oximetery ] Respiratory 18 18 16 Rate Blood Pressure Blood Pressure 193/101 184/100 170/97 [Right Arm] O2 Sat by Pulse 96 97 99 Oximetry 10/06/22 10/06/22 17:49 18:02 Temperature 97.6 F Pulse Rate 54 L Pulse Rate [ 51 L Pulse Oximetery ] Respiratory 18 16 Rate Blood Pressure 176/92 Blood Pressure 162/98 [Right Arm] O2 Sat by Pulse 96 97 Oximetry Medical Decision Making - Medical Decision Making This patient is a 51-year-old man brought for altered mental status. At my initial history and physical, the patient not able to give any history is not responding to stimuli. No evidence of any focal trauma or injury. Workup is started and were from Narcan. Following that the patient's became alert and responsive. Pupils normalized. Chest x-ray does reveal suspicious density, as interpreted by myself, and patient is sent back to have computed tomography scan Was pt. sent in by a medical professional or institution (, PA, WATERWOR[employer] PUMP STATION OPERATOR, urgent care, hospital, or residential...) When possible be specific @ -[No] Did you speak to anyone other than the patient for history (EMS, parent, family, police, friend...)? What history was obtained from this source @ -[EMS Did you review nursing and triage notes (agree or disagree)? Why? @ -[I reviewed and agree with nursing and triage notes] Were old charts reviewed (outside hosp., previous admission, EMS record, old EKG, old radiological studies, urgent care reports/EKG's, residential records)? Report findings @ -[No old charts were reviewed] Differential Diagnosis (chest pain, altered mental status, abdominal pain women, abdominal pain men, vaginal bleeding, weakness, fever, dyspnea, syncope, headache, dizziness, GI bleed, back pain, seizure, CVA, palpatations, mental health, musculoskeletal)? @ -[Differential Altered Mental Status: Hypoglycemia, DKA, hypercapnia, ETOH, overdose, CO poisoning, trauma, myxedema coma, HTN encephalopathy, infection, encephalitis, psychosis, intercranial hemorrhage, hepatic encephalopathy, meningitis, CVA, this is not meant to be an all-inclusive list EKG interpreted by me (3pts min.). @ -[As above] X-rays interpreted by me (1pt min.). @ -[None done] CT interpreted by me (1pt min.). @ -[None done] U/S interpreted by me (1pt. min.). @ -[None done] What testing was considered but not performed or refused? (CT, X-rays, U/S, labs)? Why? @ -[None] What meds were considered but not given or refused? Why? @ -[None] Did you discuss the management of the patient with other professionals (professionals i.e. , PA, WATERWOR[employer] PU[employer] STATION OPERATOR, lab, RT, psych nurse, nursing home social worker, pitch flaker, teacher, artillery officer, immigration case worker)? Give summary @ -[Case discussed with admitting physician Was smoking cessation discussed for >3mins.? @ -[Smoking cessation was discussed Was critical care preformed (if so, how long)? @ -[No] Were there social determinants of health that impacted care today? How? (Homelessness, low income, unemployed, alcoholism, drug addiction, transportation, low edu. Level, literacy, decrease access to med. care, [place] [facility], rehab)? @ -[No] Was there de-escalation of care discussed even if they declined (Discuss DNR or withdrawal of care, Hospice)? DNR status @ -[No] What co-morbidities impacted this encounter? (DM, HTN, Smoking, COPD, CAD, Cancer, CVA, ARF, Chemo, Hep., AIDS, mental health diagnosis, sleep apnea, morbid obesity)? @ -[None] Was patient admitted / discharged? Hospital course, mention meds given and route, prescriptions, significant lab abnormalities, going to OR and other pertinent info. @ -[Patient is admitted to have further evaluation of the suspicious mass observed on CT Undiagnosed new problem with uncertain prognosis? @ -[No] Drug Therapy requiring intensive monitoring for toxicity (Heparin, Nitro, Insulin, Cardizem)? @ -[No] Were any procedures done? @ -[No] Diagnosis/symptom? @ -[1. Altered mental status, acute 2. Acute psychosis 3. Paraspinal chest mass Acute, or Chronic, or Acute on Chronic? @ -[Acute Uncomplicated (without systemic symptoms) or Complicated (systemic symptoms)? @ -[Uncomplicated Side effects of treatment? @ -[No] Exacerbation, Progression, or Severe Exacerbation? @ -[No] Poses a threat to life or bodily function? How? (Chest pain, [place], [place], pneumonia, PE, COPD, DKA, ARF, appy, cholecystitis, CVA, Diverticulitis, Homicidal, Suicidal, threat to staff... and all critical care pts) @ -[Uncertain if threat to life or bodily function given the unknown etiology of mass - Lab Data Result diagrams: 10/05/22 19:53 10/07/22 07:24 Lab Results 10/05/22 10/05/22 10/05/22 Range/Units 19:53 19:53 19:53 WBC 19.8 H (3.8-10.6) k/uL RBC 5.09 (4.30-5.90) m/uL Hgb 15.2 (13.0-17.5) gm/dL Hct 43.0 (39.0-53.0) % MCV 84.5 (80.0-100.0) fL MCH 29.9 (25.0-35.0) pg MCHC 35.4 (31.0-37.0) g/dL RDW 13.6 (11.5-15.5) % Plt Count 226 (150-450) k/uL MPV 8.3 Neutrophils % 79 % Lymphocytes % 13 % Monocytes % 5 % Eosinophils % 2 % Basophils % 0 % Neutrophils # 15.6 H (1.3-7.7) k/uL Lymphocytes # 2.5 (1.0-4.8) k/uL Monocytes # 1.0 (0-1.0) k/uL Eosinophils # 0.3 (0-0.7) k/uL Basophils # 0.0 (0-0.2) k/uL PT 10.1 (9.0-12.0) sec INR 0.9 (<1.2) APTT 21.5 L (22.0-30.0) sec Sodium 135 L (137-145) mmol/L Potassium 4.1 (3.5-5.1) mmol/L Chloride 102 (98-107) mmol/L Carbon Dioxide 28 (22-30) mmol/L Anion Gap 5 mmol/L BUN 9 (9-20) mg/dL Creatinine 0.65 L (0.66-1.25) mg/dL Est GFR (CKD-EPI)AfAm >90 (>60 ml/min/1.73 sqM) Est GFR (CKD-EPI)NonAf >90 (>60 ml/min/1.73 sqM) Glucose 151 H (74-99) mg/dL Calcium 9.0 (8.4-10.2) mg/dL Total Bilirubin 0.4 (0.2-1.3) mg/dL AST 17 (17-59) U/L ALT 24 (4-49) U/L Alkaline Phosphatase 66 (38-126) U/L Troponin I (0.000-0.034) ng/mL Total Protein 6.4 (6.3-8.2) g/dL Albumin 3.8 (3.5-5.0) g/dL Urine Opiates Screen (NotDetected) Ur Oxycodone Screen (NotDetected) Urine Methadone Screen (NotDetected) Ur Propoxyphene Screen (NotDetected) Ur Barbiturates Screen (NotDetected) U Tricyclic Antidepress (NotDetected) Ur Phencyclidine Scrn (NotDetected) Ur Amphetamines Screen (NotDetected) U Methamphetamines Scrn (NotDetected) U Benzodiazepines Scrn (NotDetected) Urine Cocaine Screen (NotDetected) U Marijuana (THC) Screen (NotDetected) Serum Alcohol <10 mg/dL 10/05/22 10/05/22 Range/Units 19:53 22:13 WBC (3.8-10.6) k/uL RBC (4.30-5.90) m/uL Hgb (13.0-17.5) gm/dL Hct (39.0-53.0) % MCV (80.0-100.0) fL MCH (25.0-35.0) pg MCHC (31.0-37.0) g/dL RDW (11.5-15.5) % Plt Count (150-450) k/uL MPV Neutrophils % % Lymphocytes % % Monocytes % % Eosinophils % % Basophils % % Neutrophils # (1.3-7.7) k/uL Lymphocytes # (1.0-4.8) k/uL Monocytes # (0-1.0) k/uL Eosinophils # (0-0.7) k/uL Basophils # (0-0.2) k/uL PT (9.0-12.0) sec INR (<1.2) APTT (22.0-30.0) sec Sodium (137-145) mmol/L Potassium (3.5-5.1) mmol/L Chloride (98-107) mmol/L Carbon Dioxide (22-30) mmol/L Anion Gap mmol/L BUN (9-20) mg/dL Creatinine (0.66-1.25) mg/dL Est GFR (CKD-EPI)AfAm (>60 ml/min/1.73 sqM) Est GFR (CKD-EPI)NonAf (>60 ml/min/1.73 sqM) Glucose (74-99) mg/dL Calcium (8.4-10.2) mg/dL Total Bilirubin (0.2-1.3) mg/dL AST (17-59) U/L ALT (4-49) U/L Alkaline Phosphatase (38-126) U/L Troponin I 0.035 H* (0.000-0.034) ng/mL Total Protein (6.3-8.2) g/dL Albumin (3.5-5.0) g/dL Urine Opiates Screen Detected H (NotDetected) Ur Oxycodone Screen Not Detected (NotDetected) Urine Methadone Screen Not Detected (NotDetected) Ur Propoxyphene Screen Not Detected (NotDetected) Ur Barbiturates Screen Not Detected (NotDetected) U Tricyclic Antidepress Not Detected (NotDetected) Ur Phencyclidine Scrn Not Detected (NotDetected) Ur Amphetamines Screen Not Detected (NotDetected) U Methamphetamines Scrn Not Detected (NotDetected) U Benzodiazepines Scrn Not Detected (NotDetected) Urine Cocaine Screen Detected H (NotDetected) U Marijuana (THC) Screen Not Detected (NotDetected) Serum Alcohol mg/dL - EKG Data -: EKG Interpreted by [facility] EKG shows normal: sinus rhythm, axis (Normal), intervals (Normal), QRS complexes (Normal) Rate: bradycardia (Rate 52 bpm) Disposition Clinical Impression: Altered mental status, Leukocytosis, Elevated troponin I level, Mass in chest Disposition: ADMITTED IP TO THIS HOSP Condition: Fair Is patient prescribed a controlled substance at d/c from ED?: No
--- NOTE | 2022-10-05 19:59 | CT ---
EXAMINATION TYPE: CT brain wo con DATE OF EXAM: 10/05/2022 COMPARISON: None. HISTORY: AMS CT DLP: 1194.4 mGycm. Automated Exposure Control for Dose Reduction was Utilized. TECHNIQUE: CT scan of the head is performed without contrast. FINDINGS: There is no acute intracranial hemorrhage, mass effect, or midline shift identified. The ventricles and sulci are within normal limits in size. Jefferson-white matter differentiation is maintain ed. Some dependent fluid in the right maxillary sinus with mild mucosal thickening and small mucous r etention cyst or polyp along the right aspect axial image 6. Mild mucosal thickening posterior left m axillary sinus. IMPRESSION: No acute intracranial hemorrhage or midline shift is seen.
[2022-10-05 20:24] LABS: Basophils % (A) 0 %; Eosinophils # (A) 0.3 k/uL (0-0.7); Eosinophils % (A) 2 %; HGB 15.2 gm/dL (13.0-17.5); Lymphocytes # (A) 2.5 k/uL (1.0-4.8); Lymphocytes % (A) 13 %; MCH 29.9 pg (25.0-35.0); MCHC 35.4 g/dL (31.0-37.0); MCV 84.5 fL (80.0-100.0); Mean Platelet Volume 8.3; Monocytes % (A) 5 %; Neutrophils # (A) 15.6 k/uL (1.3-7.7); Neutrophils % (A) 79 %; Platelet Count 226 k/uL (150-450); RBC 5.09 m/uL (4.30-5.90); RDW 13.6 % (11.5-15.5); WBC 19.8 k/uL (3.8-10.6)
[2022-10-05 20:37] LABS: ALT 24 U/L (4-49); AST 17 U/L (17-59); African American GFR (CKD) >90 (>60 ml/min/1.73 sqM); Albumin 3.8 g/dL (3.5-5.0); Alcohol <10 mg/dL; Alkaline Phosphatase 66 U/L (38-126); Anion Gap 5 mmol/L; Blood Urea Nitrogen 9 mg/dL (9-20); Carbon Dioxide 28 mmol/L (22-30); Chloride 102 mmol/L (98-107); Glucose 151 mg/dL (74-99); Non-African American GFR(CKD) >90 (>60 ml/min/1.73 sqM); Potassium 4.1 mmol/L (3.5-5.1); Sodium 135 mmol/L (137-145); Total Bilirubin 0.4 mg/dL (0.2-1.3); Total Protein 6.4 g/dL (6.3-8.2)
[2022-10-05 20:38] LABS: INR 0.9 (<1.2); Prothrombin Time 10.1 sec (9.0-12.0)
[2022-10-05 20:42] LABS: Partial Thromboplastin Time 21.5 sec (22.0-30.0)
--- NOTE | 2022-10-05 22:25 | XR ---
EXAMINATION TYPE: XR chest 2V DATE OF EXAM: 10/05/2022 COMPARISON: NONE HISTORY: Altered mental status and weakness TECHNIQUE: Frontal and lateral views of the chest are obtained. FINDINGS: Cardiac silhouette size is within normal limits. There is chronic emphysematous change wi th suspicious posterior superior left lung mass near 8.5 cm. Increased peribronchial markings bilate rally. No pleural effusion or pneumothorax noted. The osseous structures are intact. IMPRESSION: Chronic emphysematous change with central perihilar peribronchial cuffing consistent wit h a bronchiolitis. Suspicious posterior superior left lower lobe mass worrisome for neoplasm. Follow- up chest CT advised.
[2022-10-05] MEDS ORDERED: RX INFO: IV CONTRAST WAS GIVEN 1 EACH MISC MISCELLANE PRN (22:36)
[2022-10-05] MEDS ORDERED: NITROGLYCERIN SL TABS 0.4 MG TAB SUBLINGUAL PRN (22:42)
[2022-10-05 22:52] LABS: Amphetamine Screen,Urine Not Detected (NotDetected); Barbiturate Screen,Urine Not Detected (NotDetected); Benzodiazepines Screen,Urine Not Detected (NotDetected); Cocaine Screen,Urine Detected (NotDetected); Methadone Screen, Urine Not Detected (NotDetected); Opiate Screen,Urine Detected (NotDetected); Oxycodone Screen, Urine Not Detected (NotDetected); Phencyclidine Screen,Urine Not Detected (NotDetected); Tricyclic Antidepressant,Urine Not Detected (NotDetected); Urn Cannabinoid Scrn Not Detected (NotDetected)
[2022-10-06] MEDS: SODIUM CHLORIDE 0.9% 1,000 ML IV SCH (02:06)
--- NOTE | 2022-10-06 06:12 | CT ---
EXAM: CT Chest With Intravenous Contrast CLINICAL HISTORY: evaluate suspected mass TECHNIQUE: Axial computed tomography images of the chest with intravenous contrast. CTDI is 9.8 mGy and DLP is 418 mGy-cm. This CT exam was performed using one or more of the following dose reduction techniques: automated exposure control, adjustment of the mA and/or kV according to patient size, and/or use of iterative reconstruction technique. COMPARISON: Chest x-ray dated 10/05/2022. FINDINGS: Artifacts: Motion artifact degrades image quality limits evaluation. Lungs: Patchy ground-glass opacities are seen in the bilateral lower lobes, right greater the left, along with the right middle lobe and lingula in the setting of mild interlobular septal thickening. Findings suggestive of pulmonary alveolar edema and/or infectious versus inflammatory airspace disease. Pleural space: Trace bilateral pleural effusions, left greater than right. No pneumothorax. Heart: Unremarkable. No cardiomegaly. No significant pericardial effusion. No significant coronary artery calcifications. Mediastinum: Fluid is seen within the esophagus, likely represent gastroesophageal reflux. Bones/joints: There is a 7.7 x 5.3 x 5.5 cm heterogeneous ovoid left- sided paraspinal mass at the level of T6-T9, likely extending into the T7- T8 neuroforamen. Differential would include neoplasm (neurogenic versus nonneurogenic). Inflammatory process versus extramedullary hematopoiesis are less likely. No acute fracture. No dislocation. Soft tissues: Unremarkable. Vasculature: Unremarkable. No thoracic aortic aneurysm. Lymph nodes: Unremarkable. No significant adenopathy. IMPRESSION: 1. There is a 7.7 x 5.3 x 5.5 cm heterogeneous ovoid left-sided paraspinal mass at the level of T6-T9, likely extending into the T7-T8 neuroforamen. Differential would include neoplasm (neurogenic versus nonneurogenic). Inflammatory process versus extramedullary hematopoiesis are less likely. 2. Patchy ground-glass opacities are seen in the bilateral lower lobes, right greater the left, along with the right middle lobe and lingula in the setting of mild interlobular septal thickening. Findings suggestive of pulmonary alveolar edema and/or infectious versus inflammatory airspace disease. 3. Trace bilateral pleural effusions, left greater than right. 4. Fluid is seen within the esophagus, likely represent gastroesophageal reflux.
[2022-10-06 08:54] LABS: Chol/HDL Ratio 2.75 Ratio; LDL Cholesterol,Calculated 80.4 mg/dL (0.0-131.0)
[2022-10-06] MEDS: ASPIRIN 325 MG TAB PO SCH (08:55)
--- NOTE | 2022-10-06 10:37 | CONS ---
CONSULTATION CHIEF COMPLAINT: Elevated troponin. HISTORY OF PRESENT ILLNESS: This is a 51-year-old gentleman with no significant past medical history, was brought in by his coworkers as he appeared to be falling asleep easily and not responding appropriately. He was given reversal medicine for [place] following which he perked up more and had been more awake and alert since. His drug screen had come back positive for opiates and cocaine and his troponins are mildly elevated at 0.03, 0.04, 0.04, probably related to the cocaine use. White cell count is also elevated. EKG shows sinus bradycardia with nonspecific ST-T wave changes. The patient's troponin is related to cocaine use and he does not require any other cardiac workup at this time. I will obtain a 2D echo. He had a CT scan of the chest that showed bilateral lower lobe patchy opacities bilaterally and pleural effusion and a paraspinal mass. PAST MEDICAL HISTORY: Negative for hypertension, diabetes, and dyslipidemia. MEDICATIONS: None. ALLERGIES: Allergic to Kefzol. FAMILY HISTORY: Negative for premature coronary artery disease. SOCIAL HISTORY: Negative for current smoking, EtOH, or drug abuse. REVIEW OF SYSTEMS: A review of systems has been performed. Pertinences are as documented. PHYSICAL EXAMINATION: GENERAL: The patient is comfortable, still sleepy but alert, able to answer questions. VITAL SIGNS: Stable. CHEST: Reveals good air entry bilaterally. HEART: Reveals first and second heart sounds. No gallop, no murmur. ABDOMEN: Soft. EXTREMITIES: Did not reveal any edema. Peripheral pulses are palpable. EKG is as described above, cardiac enzymes are as described above. ASSESSMENT: Elevated troponin secondary to cocaine use. PLAN: I admitted the patient to not use cocaine. I will obtain a 2D echo to assess his LV function and wall motion. No other workup at this time. MMODL / IJN: [id number] /
--- NOTE | 2022-10-06 11:51 | P.PN ---
Progress Note - Text Progress Note Date: 10/06/22 Patient was seen in the ER, however the patient was extremely uncooperative, and was not very pleasant. I could not dictate the full consultation on this patient, however I was able to review the CT of the chest, reviewed his chest x- ray, reviewed his labs, I am recommending that the patient goes on antibiotics empirically, I'm also recommending BNP level, pro-calcitonin level, and I'm recommending evaluation by spine surgery/orthopedics as well as evaluation by interventional radiology for possible CT guided needle aspiration of the left paraspinal mass/possible abscess and this to be done by interventional radiology. I have also recommended evaluation by Dr. dr dodd. The tumor in the left paraspinal area could be neurogenic or could be non-neurogenic or could even be an abscess. We will reevaluate the patient in the next 24 hours, if necessary. No official consultation was fully done on this patient
[2022-10-06] MEDS ORDERED: AMPICILLIN-SULBACTAM 3 GM in SODIUM CHLORIDE 0.9% 50 ML IVPB SCH (12:00)
--- NOTE | 2022-10-06 17:01 | CA ---
Transthoracic Echo Report Name: Fuad Bermeo Age: 51 Gender: M : 1970 Exam Date: 10/06/2022 13:50 Exam Location: [facility] Ht (in): 68 Wt (lb): 200 Ordering Physician: Ky Oseguera MD ([id number]) Attending/Referring Phys: Oumar ALVARADO Rig Site Engineer Bao Bassett RDCS Procedure CPT: Indications: c/p Cardiac Hx: Technical Quality: Fair Contrast 1: Total Dose (mL): Contrast 2: Total Dose (mL): MEASUREMENTS (Male / Female) Normal Values 2D ECHO LV Diastolic Diameter PLAX 5.1 cm 4.2 - 5.9 / 3.9 - 5.3 cm LV Systolic Diameter PLAX 3.6 cm IVS Diastolic Thickness 1.0 cm 0.6 - 1.0 / 0.6 - 0.9 cm LVPW Diastolic Thickness 1.1 cm 0.6 - 1.0 / 0.6 - 0.9 cm LV Relative Wall Thickness 0.4 RV Internal Dim ED PLAX 3.5 cm LA Volume 42.6 cm??? 18 - 58 / 22 - 52 cm??? M-MODE Aortic Root Diameter MM 2.9 cm AV Cusp Separation MM 2.2 cm DOPPLER AV Peak Velocity 121.5 cm/s AV Peak Gradient 5.9 mmHg LVOT Peak Velocity 113.2 cm/s LVOT Peak Gradient 5.1 mmHg MV Area PHT 2.3 cm??? Mitral E Point Velocity 53.0 cm/s Mitral A Point Velocity 67.3 cm/s Mitral E to A Ratio 0.8 MV Deceleration Time 327.4 ms TR Peak Velocity 163.8 cm/s TR Peak Gradient 10.7 mmHg FINDINGS Left Ventricle Left ventricular wall thickness normal. Left ventricular cavity size normal. Left ventricular ejection fraction is estimated at 50-55 %. Right Ventricle Right ventricle not well visualized. Normal right ventricular global systolic function. Right ventricular systolic pressure within normal limits. Right Atrium Normal right atrial size. Left Atrium Normal left atrial size. Mitral Valve Structurally normal mitral valve. Trace to mild mitral regurgitation. Aortic Valve Trileaflet aortic valve. No aortic regurgitation. No aortic stenosis. Tricuspid Valve Structurally normal tricuspid valve. Trace tricuspid regurgitation. Pulmonic Valve Structurally normal pulmonic valve. Mild pulmonic regurgitation. Pericardium No pericardial or pleural effusion. Aorta Normal size aortic root and proximal ascending aorta. CONCLUSIONS Normal LV systolic function Previewed by: Dr. Ky Oseguera MD (Electronically Signed) Final Date: 06 October 2022 17:00
--- NOTE | 2022-10-06 17:43 | CT ---
EXAMINATION TYPE: CT guided biopsy DATE OF EXAM: 10/06/2022 COMPARISON: 10/06/2022 HISTORY: Biopsy thoracic left paraspinal mass CT DLP: 1266 mGycm The procedure is discussed with the patient, the risks, complications, benefits and alternatives, wer e discussed and any questions were answered. Informed consent was obtained. The patient is placed p jesus manuel on the CT table, prepped and draped in the usual sterile fashion. Utilizing a 18-gauge core biopsy needle access into the left paraspinal mass was achieved with sample Bustos sent to pathology for analysis. Pathology pending. All elements of maximal barrier techniq ue were utilized. The patient remained stable throughout the procedure with no immediate postprocedu ral complication. IMPRESSION: 1. Successful CT guided core biopsy of a left paraspinal thoracic mass
[2022-10-06] MEDS ORDERED: VANCOMYCIN IV PER PHARMACY 1 EACH MISC MISCELLANE PRN (17:49)
[2022-10-06] MEDS: AMPICILLIN-SULBACTAM 3 GM in SODIUM CHLORIDE 0.9% 100 ML IVPB SCH (18:20)
[2022-10-06] MEDS: VANCOMYCIN 1,500 MG in SODIUM CHLORIDE 0.9% 500 ML 500 ML IVPB SCH (20:46)
--- NOTE | 2022-10-06 21:22 | P.CONS ---
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 as apparently the patient coworker found him to be not responding appropriately patient appeared to be falling asleep patient denies having any high-grade fever or any chills and no history of any recent trauma no headache has been complaining of some vague chest pain unable to quantify it any further patient denies having any shortness of breath or cough no nausea no vomiting no abdominal pain or any diarrhea patient on presentation to the hospital was afebrile patient was not hypoxic or need for supplemental oxygen urine drug screen was positive for cocaine and opiates patient did have elevated white count of 19.8 with a left shift troponins were elevated kidney function was normal liver enzymes are normal patient did have a CT of the brain no acute intracranial hemorrhage chest x-ray chronic emphysematous changes with central and the peribronchial cuffing consistent with bronchiolitis he also have a CT of the chest which did show heterogeneous left-sided paraspinal mass at the level of T6-T9 with concern for possible neoplasm or inflammatory process patient was started on Unasyn infectious disease was consulted for further management of antibiotic therapy Review of Systems Positive point has been mentioned in the HPI rest of the systems are negative Past Medical History Past Medical History: No Reported History History of Any Multi-Drug Resistant Organisms: None Reported Past Surgical History: No Surgical Hx Reported Past Psychological History: No Psychological Hx Reported Past Alcohol Use History: None Reported Past Drug Use History: None Reported - Past Family History Father Family Medical History: Hypertension Medications and Allergies Home Medications Medication Instructions Recorded Confirmed Type Amoxic-Pot Clav 875-125Mg 1 tab PO BID 1 Days #10 tab 10/07/22 Rx [Augmentin 875-125] amLODIPine [Norvasc] 5 mg PO DAILY #30 tab 10/07/22 Rx Allergies Allergy/AdvReac Type Severity Reaction Status Date / Time cefazolin Allergy Rash/Hives Verified 10/05/22 20:44 Physical Exam Vitals: Vital Signs Pulse Resp BP Pulse Ox 10/06/22 08:56 52 L 18 127/79 96 10/05/22 23:46 50 L 18 180/105 10/05/22 20:50 18 10/05/22 19:18 60 18 180/110 94 L Intake and Output 10/05/22 10/06/22 10/06/22 22:59 06:59 14:59 Other: Weight 90.718 kg GENERAL DESCRIPTION: Middle-aged male lying in bed, no distress. No tachypnea or accessory muscle of respiration use. HEENT: Shows Pallor , no scleral icterus. Oral mucous membrane is dry. No pharyngeal erythema or thrush NECK: Trachea central, no thyromegaly. LUNGS: Unlabored breathing. Clear to auscultation anteriorly. No wheeze or crackle. HEART: S1, S2, regular rate and rhythm. No loud murmur ABDOMEN: Soft, no tenderness , guarding or rigidity, no organomegaly EXTREMITIES: No edema of feet. SKIN: No rash, no masses palpable. NEUROLOGICAL: The patient is awake, alert, oriented x3, mood and affect normal. Results CBC & Chem 7: 10/05/22 19:53 10/07/22 07:24 Labs: Abnormal Lab Results - Last 24 Hours (Table) 10/05/22 10/05/22 10/05/22 Range/Units 19:53 19:53 19:53 WBC 19.8 H (3.8-10.6) k/uL Neutrophils # 15.6 H (1.3-7.7) k/uL APTT 21.5 L (22.0-30.0) sec Sodium 135 L (137-145) mmol/L Creatinine 0.65 L (0.66-1.25) mg/dL Glucose 151 H (74-99) mg/dL Troponin I (0.000-0.034) ng/mL Urine Opiates Screen (NotDetected) Urine Cocaine Screen (NotDetected) 10/05/22 10/05/22 10/06/22 Range/Units 19:53 22:13 00:13 WBC (3.8-10.6) k/uL Neutrophils # (1.3-7.7) k/uL APTT (22.0-30.0) sec Sodium (137-145) mmol/L Creatinine (0.66-1.25) mg/dL Glucose (74-99) mg/dL Troponin I 0.035 H* 0.042 H* (0.000-0.034) ng/mL Urine Opiates Screen Detected H (NotDetected) Urine Cocaine Screen Detected H (NotDetected) 10/06/22 Range/Units 03:22 WBC (3.8-10.6) k/uL Neutrophils # (1.3-7.7) k/uL APTT (22.0-30.0) sec Sodium (137-145) mmol/L Creatinine (0.66-1.25) mg/dL Glucose (74-99) mg/dL Troponin I 0.045 H* (0.000-0.034) ng/mL Urine Opiates Screen (NotDetected) Urine Cocaine Screen (NotDetected) Assessment and Plan (1) Abnormal CT of the chest Status: Acute Code(s): R93.89 - ABNORMAL FINDINGS ON DX IMAGING OF OTH BODY STRUCTURES SNOMED Code(s): 46490599912470435 (2) Leukocytosis Status: Acute Code(s): D72.829 - ELEVATED WHITE BLOOD CELL COUNT, UNSPECIFIED SNOMED Code(s): 857314442 Plan: 1patient with abnormal CT of the chest with evidence of paraspinal muscles with a question of possible infectious versus noninfectious etiology patient did have elevated white count but no fever and his symptoms are vague with concern for possible paraspinal abscess not entirely excluded 2-blood cultures will be obtained and also check inflammatory markers 3-awaiting CT-guided aspirate of this mass sample should be sent for routine bacterial as well as fungal and mycobacterial culture as ordered by pulmonary 4-continue with Unasyn we will add vancomycin pending cultures We will follow on clinical condition and cultures to further adjust medication if needed Thank you for this consultation we will follow the patient along with you Time with Patient: Greater than 30
[2022-10-07] MEDS: AMPICILLIN-SULBACTAM 3 GM in SODIUM CHLORIDE 0.9% 100 ML IVPB SCH ×2 (00:18→06:57)
[2022-10-07] MEDS: SODIUM CHLORIDE 0.9% 1,000 ML IV SCH (00:23)
[2022-10-07] MEDS: amLODIPine 5 MG TAB PO SCH ×2 (00:23→09:38)
--- NOTE | 2022-10-07 01:13 | HP ---
HISTORY AND PHYSICAL CHIEF COMPLAINT: Change in mental status and cough. HISTORY OF PRESENT ILLNESS: A 51-year-old gentleman, with a past medical history of no significant medical issues. Apparently, been sick for the past several weeks. The patient is having cough and the patient came to [facility]. The patient is followed by Dr. Sutton in the outpatient setting and the patient is noted to have left paraspinal lesion. The patient is rather not very cooperative and compliant at this time and the troponin is found to be 0.04 and the patient came for further evaluation and treatment. Empiric antibiotics have been given. Neurology and Spine Surgery evaluation also has been obtained. PAST MEDICAL HISTORY: Reviewed. REVIEW OF SYSTEMS: Fourteen-point review is negative except as mentioned earlier. HOME MEDICATIONS: None. ALLERGIES: Cefazolin. FAMILY HISTORY: Hypertension. SOCIAL HISTORY: History of smoking. No history of alcohol, THC. PHYSICAL EXAMINATION: VITAL SIGNS: Pulse is 50, blood pressure is 180/105, respiration 18. HEENT: Conjunctivae normal. NECK: No jugular venous distention. CARDIOVASCULAR: S1, S2 muffled. RESPIRATIONS: Few bilateral scattered rhonchi and crackles. ABDOMEN: Soft. LEGS: No edema, no swelling. NERVOUS SYSTEM: No focal deficits. LABORATORY DATA: WBC 19.8. Other labs are noted. ASSESSMENT: 1. Left paraspinal mass and possible pneumonia. 2. Troponin 0.04. Rule out acute [id number]-elevation myocardial infarction. 3. Increased WBC. 4. History of cocaine usage. 5. Possible chronic obstructive pulmonary disease. RECOMMENDATIONS AND DISCUSSION: This 51-year-old gentleman presented with multiple complex medical issues as mentioned earlier. The exact etiology of the radiologic abnormalities and chest x-ray abnormalities and CAT scan abnormalities are unknown at this time. Dr. Santos has recommended empiric antibiotics. I will continue with empiric antibiotics, obtain a Neurology and Orthopedic Surgery evaluation and also if possible proceed with fine- needle aspiration biopsy as Dr. Santos has suggested. The prognosis is extremely guarded and we will follow with Cardiology. The patient had a history of noncompliance. Also, we will continue to monitor. Further recommendations to follow. MMODL / IJN: [id number] /
[2022-10-07 01:25] VITALS: RESP 18
[2022-10-07] MEDS: VANCOMYCIN 1,500 MG in SODIUM CHLORIDE 0.9% 500 ML 500 ML IVPB SCH (03:28)
[2022-10-07 08:47] LABS: African American GFR (CKD) >90 (>60 ml/min/1.73 sqM); Non-African American GFR(CKD) >90 (>60 ml/min/1.73 sqM)
[2022-10-07] MEDS: ASPIRIN 325 MG TAB PO SCH (09:38)
--- NOTE | 2022-10-07 10:47 | P.PN ---
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 Cardiology was consulted yesterday secondary to abnormal troponins. Patient's toxicology screen was positive for opiates and cocaine. Patient had a tachycardia gram performed revealing ejection fraction 50-55%. Patient denies chest pain or pressure. He denies shortness of breath. He is status post CT-guided biopsy of paraspinal mass. Vital signs are stable. Telemetry reveals sinus bradycardia. PHYSICAL EXAM: VITAL SIGNS: Reviewed. GENERAL: Well-developed in no acute distress. NECK: Supple. No JVD or thyromegaly LUNGS: Respirations even and unlabored. Lungs essentially clear to auscultation bilaterally. HEART: Regular rate and rhythm. S1 and S2 heard. EXTREMITIES: Normal range of motion. No clubbing or cyanosis. Peripheral pulses intact. No lower extremity edema ASSESSMENT: Altered mental status, improving Leukocytosis Cocaine and opiate use Sinus bradycardia, asymptomatic Elevated blood pressures, started on Norvasc per internal medicine Abnormal troponins, secondary to above, no evidence of acute coronary syndrome Paraspinal mass, status post CT-guided biopsy PLAN: Discontinue aspirin Patient is stable from a cardiac standpoint with no further inpatient recommendations from a cardiac perspective We will sign off. Please reconsult if needed. Nurse practitioner note has been reviewed by physician. Signing provider agrees with the documented findings, assessment, and plan of care. Objective - Vital Signs Vital signs: Vital Signs Temp 97.6 F 10/06/22 18:02 Pulse 46 L 10/07/22 04:00 Resp 18 10/07/22 04:00 BP 168/91 10/07/22 04:00 Pulse Ox 97 10/07/22 09:38 FiO2 Intake & Output 10/06/22 10/07/22 10/07/22 18:59 06:59 18:59 Weight 90.718 kg Other: # Voids 2 - Labs CBC & Chem 7: 10/05/22 19:53 10/07/22 07:24 Labs: Abnormal Lab Results - Last 24 Hours (Table) 10/06/22 10/06/22 10/06/22 Range/Units 11:57 18:13 18:13 ESR 19 H (0-15) mm/hr C-Reactive Protein 7.5 H (<1.0) mg/dL Procalcitonin 0.16 H (0.02-0.09) ng/mL
[2022-10-07 10:56] VITALS: BP 165/94; PULSE 54; TEMP 97.7
--- NOTE | 2022-10-07 12:58 | P.CNPUL ---
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 Patient appears to fall asleep easily, but he had no fever no chills, no cough, no wheezing. No nausea no vomiting no abdominal pain no melena no hematemesis. Patient was brought into the ER, he was found to have significantly abnormal drug screen, there was evidence of leukocytosis, chest x-ray raised the possibility of bilateral interstitial infiltrates and/or pulmonary edema, patient was found to have a lung mass/paraspinal mass at the level of T6 T9 which raised the possibility of bronchogenic or neurogenic tumor also raise the possibility of abscess. I saw the patient briefly yesterday in the ER, and I discussed his condition with the interventional radiologist, and shortly after he was admitted the patient underwent CT-guided needle aspiration of the left lung mass. Results of which are pending. Considering his presentation and considering his chest x-ray also felt that the patient may have aspiration pneumonia, and he was placed empirically on Unasyn. Today the patient is doing great, asymptomatic, hardly any pulmonary symptoms whatsoever, he is definitely much more pleasant today than he was yesterday. Pro-calcitonin slightly elevated at 0.16. His BNP level was 2680. And his drug screen was positive for opiates and for cocaine Review of Systems Constitutional: Negative HEENT: Negative pulmonary: Negative Cardiac: Negative GI: Negative genitourinary: Negative Muscular: Negative Neurologic: Negative Hematologic: Negative Psychiatric: Negative Skin: Negative endocrine: Negative Past Medical History Past Medical History: No Reported History History of Any Multi-Drug Resistant Organisms: None Reported Past Surgical History: No Surgical Hx Reported Past Psychological History: No Psychological Hx Reported Past Alcohol Use History: None Reported Past Drug Use History: None Reported - Past Family History Father Family Medical History: Hypertension Medications and Allergies Home Medications Medication Instructions Recorded Confirmed Type Amoxic-Pot Clav 875-125Mg 1 tab PO BID 1 Days #10 tab 10/07/22 Rx [Augmentin 875-125] amLODIPine [Norvasc] 5 mg PO DAILY #30 tab 10/07/22 Rx Allergies Allergy/AdvReac Type Severity Reaction Status Date / Time cefazolin Allergy Rash/Hives Verified 10/05/22 20:44 Physical Exam Vitals: Vital Signs Temp Pulse Pulse Resp BP BP Pulse Ox 10/07/22 09:38 97 10/07/22 08:00 97.7 F 54 L 18 165/94 94 L 10/07/22 04:00 46 L 18 168/91 97 10/07/22 02:00 47 L 18 10/07/22 01:00 95 10/07/22 00:00 47 L 18 145/81 95 10/06/22 20:00 53 L 18 188/94 98 10/06/22 18:02 97.6 F 51 L 16 162/98 97 10/06/22 17:49 54 L 18 176/92 96 10/06/22 15:31 52 L 16 170/97 99 10/06/22 15:20 49 L 18 184/100 97 10/06/22 15:15 55 L 18 193/101 96 10/06/22 14:34 51 L 18 164/91 96 Intake and Output 10/06/22 10/07/22 10/07/22 22:59 06:59 14:59 Other: # Voids 2 Weight 90.718 kg Physical Exam: Revealed a 51-year-old male in no distress on room air Head: Atraumatic normocephalic. HEENT:[Neck is supple.] [No neck masses.] [No thyromegaly.] [No JVD.] Chest: [Clear throughout, no crackles, no rhonchi, no wheezes.] Cardiac Exam: [Normal S1 and S2, no S3 gallop, no murmur.] Abdomen: [Soft, nontender, no megaly, no rebound, no guarding, normal bowel sounds.] Extremities: [No clubbing, no edema, no cyanosis.] Neurological Exam: [No focal neurologic deficit.] Alert oriented 3. Psychiatric: Normal mood affect and normal mental status examination. Skin: No rashes Results - Laboratory Findings CBC and BMP: 10/05/22 19:53 10/07/22 07:24 PT/INR, D-dimer PT 10.1 sec (9.0-12.0) 10/05/22 19:53 INR 0.9 (<1.2) 10/05/22 19:53 Abnormal lab findings: Abnormal Labs 10/05/22 10/05/22 10/05/22 19:53 19:53 19:53 WBC 19.8 H Neutrophils # 15.6 H ESR APTT 21.5 L Sodium 135 L Creatinine 0.65 L Glucose 151 H Troponin I C-Reactive Protein Procalcitonin Urine Opiates Screen Urine Cocaine Screen 10/05/22 10/05/22 10/06/22 19:53 22:13 00:13 WBC Neutrophils # ESR APTT Sodium Creatinine Glucose Troponin I 0.035 H* 0.042 H* C-Reactive Protein Procalcitonin Urine Opiates Screen Detected H Urine Cocaine Screen Detected H 10/06/22 10/06/22 10/06/22 03:22 11:57 18:13 WBC Neutrophils # ESR 19 H APTT Sodium Creatinine Glucose Troponin I 0.045 H* C-Reactive Protein Procalcitonin 0.16 H Urine Opiates Screen Urine Cocaine Screen 10/06/22 18:13 WBC Neutrophils # ESR APTT Sodium Creatinine Glucose Troponin I C-Reactive Protein 7.5 H Procalcitonin Urine Opiates Screen Urine Cocaine Screen - Diagnostic Findings Chest x-ray: image reviewed (As noted in HPI) CT scan - chest: image reviewed (As noted in HPI) Assessment and Plan Assessment: Impression: Abnormal CT of the chest suggestive of aspiration pneumonia and paraspinal mass which is likely bronchogenic carcinoma however the possibility of bronchogenic or neurogenic malignancy is not entirely ruled out. Doubt abscess. Aspiration pneumonia is strongly suspected based on his chest x-ray and based on his clinical presentation Positive drug screen for amphetamine and cocaine on presentation Altered mental status on presentation secondary to positive drugs intoxication Accommodation: Continue antibiotics, patient is presently on Unasyn. Awaiting the results of the needle biopsy which was done yesterday upon my recommendation to the interventional radiologist Could consider transitioning the patient to oral antibiotics, discharge home, and follow-up on outpatient basis May take 5 days for the results of the needle biopsy to become available. Again this could be addressed on an outpatient basis with the patient Time with Patient: Greater than 30
--- NOTE | 2022-10-07 14:19 | P.PN ---
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 on today's evaluation, that is 10/07/2022, the patient denies having any fever or chills, patient is feeling better no chest pain shortness of breath or cough no abdominal pain no diarrhea and wants to go home Objective - Vital Signs Vital signs: Vital Signs Temp 97.7 F 10/07/22 08:00 Pulse 54 L 10/07/22 08:00 Resp 18 10/07/22 08:00 BP 165/94 10/07/22 08:00 Pulse Ox 97 10/07/22 09:38 FiO2 Intake & Output 10/06/22 10/07/22 10/07/22 18:59 06:59 18:59 Weight 90.718 kg Other: # Voids 2 - Exam GENERAL DESCRIPTION: A middle-aged male lying in bed in no distress RESPIRATORY SYSTEM: Unlabored breathing , decreased breath sounds at bases HEART: S1 S2 regular rate and rhythm , ABDOMEN: Soft , no tenderness EXTREMITIES: No edema feet - Labs CBC & Chem 7: 10/05/22 19:53 10/07/22 07:24 Labs: Abnormal Lab Results - Last 24 Hours (Table) 10/06/22 10/06/22 10/06/22 Range/Units 11:57 18:13 18:13 ESR 19 H (0-15) mm/hr C-Reactive Protein 7.5 H (<1.0) mg/dL Procalcitonin 0.16 H (0.02-0.09) ng/mL Assessment and Plan (1) Leukocytosis Status: Acute Code(s): D72.829 - ELEVATED WHITE BLOOD CELL COUNT, UNSPECIFIED SNOMED Code(s): 704439523 Plan: 1patient with abnormal CT of the chest with evidence of paraspinal muscles with a question of possible infectious versus noninfectious etiology patient did have elevated white count but no fever and his symptoms are vague with concern for possible paraspinal abscess not entirely excluded 2-blood cultures are currently pending, patient did have mildly elevated inflammatory markers 3-apparently the patient was noticed to have a solid tumor rather than abscess and the patient has been cleared for discharge by other consultants prescription for oral Augmentin has been sent and he needs close outpatient follow-up Time with Patient: Less than 30
--- NOTE | 2022-10-07 15:37 | P.CNOR ---
History of Present Illness - [facility] Consult date: 10/07/22 Requesting physician: Mandie Latif Consult reason: other (Paraspinal mass) History of present illness: History of Presenting Illness Patient is a pleasant 51 yo male that presented to the ER after coworkers had some concerns and called an ambulance because he was not responding appropriately. The patient appeared to be falling asleep at work and not responding well. Patient has tested positive in his drug screen for opiates and cocaine. Our services were consulted due to a paraspinal mass found on his CT scan. Patient denies any orthopedic history. Patient denies any medical history at this time. Patient denies any back pain or radicular symptoms to his upper or lower extremities. He denies any numbness or tingling to upper and lower ex tremities. Patient seen and examined this morning. He denies any complaint of pain. 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 Patient has no acute concerns at this time. He has been afebrile, denies nausea/vomiting, or chest pain. Review of Systems Pertinent positives and negatives as discussed in HPI, a complete review of systems was performed and all other systems are negative. Physical Examination General: The patient is awake and alert, in no acute distress Skin: Skin is warm and dry with no obvious rashes or lesions. Eye: Pupils are equal, round and reactive to light, extra-ocular movements are intact; there is normal conjunctiva bilaterally. Neck: The neck is supple, there is no tenderness and ROM intact. Cardiovascular: There is a regular rate and rhythm. No murmur, rub or gallop is appreciated. Gastrointestinal: Soft, non-distended, non-tender abdomen. Back: There is no tenderness to palpation in the midline, paralumbar, parathoracic or buttocks region. There is no obvious deformity. Musculoskeletal: ROM limited secondary to pain and stiffness from surgical procedure. Shoulder abduction 5/5, elbow flexors 5/5, wrist dorsiflexors 5/5. finger abductor 5/5, him coder 5/5, hip flexor 5/5, knee flexor 5/5, ankle dorsiflexor 5/5, ankle plantarflexion 5/5 and extensor hallucis 5/5. Neurological: CN 2-12 intact. There are no obvious motor or sensory deficits. Movement and coordination equal and intact. Sensory exam to light touch intact C5-T1 and intact from L2-S1. Reflexes 2/4 in bilateral upper and lower extremities. Negative Hoffmans, babinski, and clonus signs. Psychiatric: Cooperative, appropriate mood & affect, normal judgment. Assessment and Plan CT of the chest demonstrate a 7.7 x 5.3 x 5.5 cm heterogeneous ovoid left-sided paraspinal mass at the level of T6-T9, likely extending into the T7-T8 neuroforamen. Patchy ground-glass opacities are seen in the bilateral lower lobes, right greater the left, along with the right middle lobe and lingula in the setting of mild interlobular septal thickening. Findings suggestive of pulmonary alveolar edema and/or infectious versus inflammatory airspace disease. 1. Altered mental status, improving 2. Cocaine and opiate use 3. Paraspinal mass, status post CT-guided biopsy CT guided biopsy has been obtained by IR of the paraspinal mass, results are pending. There is no emergent or urgent surgical intervention to be performed by our s ersophia. -Recommend patient to follow up with cardio/thoracic or Neurosurgery. -Pain management -CT guided biopsy has been obtained by IR of the paraspinal mass, results are pending. Our services are signing off at this time. No further recommendations from an orthopedic standpoint. I reviewed and discussed this case with my attending Dr. Aiken, whom has re viewed this chart and films and is in agreement with assessment and plan of care as outlined above. I have personally seen and examined the patient, performed the documentation and the assessment and plan as written. Number of minutes spent on the visit: [ ]. Past Medical History Past Medical History: No Reported History History of Any Multi-Drug Resistant Organisms: None Reported Past Surgical History: No Surgical Hx Reported Past Psychological History: No Psychological Hx Reported Past Alcohol Use History: None Reported Past Drug Use History: None Reported - Past Family History Father Family Medical History: Hypertension Medications and Allergies Home Medications Medication Instructions Recorded Confirmed Type Amoxic-Pot Clav 875-125Mg 1 tab PO BID 1 Days #10 tab 10/07/22 Rx [Augmentin 875-125] amLODIPine [Norvasc] 5 mg PO DAILY #30 tab 10/07/22 Rx Allergies Allergy/AdvReac Type Severity Reaction Status Date / Time cefazolin Allergy Rash/Hives Verified 10/05/22 20:44 Results - Labs Labs: Abnormal Lab Results - Last 24 Hours (Table) 10/06/22 10/06/22 10/06/22 Range/Units 11:57 18:13 18:13 ESR 19 H (0-15) mm/hr C-Reactive Protein 7.5 H (<1.0) mg/dL Procalcitonin 0.16 H (0.02-0.09) ng/mL H & H 10/05/22 Range/Units 19:53 Hgb 15.2 (13.0-17.5) gm/dL Hct 43.0 (39.0-53.0) % Coagulation 10/05/22 Range/Units 19:53 INR 0.9 (<1.2) Result Diagrams: 10/05/22 19:53 10/07/22 07:24
--- NOTE | 2022-10-07 23:56 | DS ---
DISCHARGE SUMMARY FINAL DIAGNOSES: 1. Left parasternal mass and possible pneumonia. 2. Troponin 0.04, indeterminate myocardial infarction, ruled out. 3. Increased WBC. 4. History of cocaine usage. 5. Possible COPD. DISCHARGE DISPOSITION: The patient discharged in stable and guarded condition. HISTORY OF PRESENT ILLNESS: This 51-year-old gentleman admitted with multiple medical issues. The patient was noted to have a left paraspinal thoracic mass. A fine-needle aspiration biopsy was done. The patient was seen by Orthopedic Surgery as well as Pulmonology, Infectious Disease. Please refer to their notes for further recommendations. The patient is extremely keen on going home. The patient was discharged in stable condition. Guarded prognosis with the following advices and medications. The patient was discharged on a course of Augmentin, Norvasc. Follow up with Dr. Sutton. Follow up with Dr. Santos. Follow up with Dr. Curry and follow up with Orthopedic Surgery as recommended. Prognosis guarded. Further recommendations to follow thanks. MMODL / IJN: [id number] /
[2022-10-08] MEDS ORDERED: VANCOMYCIN TROUGH DUE 1 EACH MISC MISCELLANE ONE (02:00)
== END 2022-10-07 13:55 | disposition home or self-care (01) ==
LOC: EC 19:02 → 3SCARD 22:46
PROVIDERS: ADMIT Hospitalist; ATTEND Hospitalist
DX: R22.2 Localized swelling, mass and lump, trunk (principal); R05.3 Chronic cough; Z82.49 Family history of ischemic heart disease and other diseases of the circulatory system; D72.829 Elevated white blood cell count, unspecified; R77.8 Other specified abnormalities of plasma proteins; Z87.891 Personal history of nicotine dependence; R00.1 Bradycardia, unspecified; Z79.899 Other long term (current) drug therapy; Z88.1 Allergy status to other antibiotic agents
CPT/HCPCS: 96365 ×2; 96366 ×3; 96367; 96375; 99285; 36415; 94760; 93005 ×2; 93306; 83880; 80061; 80053; 85652; 82565; 84484 ×2; 85025; 85610; 85730; 86140; 87040; 80306; 84145; 71046; 77012; 70450; 71260; G0378 ×3; G0480; J3370 ×2; J2310; J0295 ×3; Q9967; 80320